=== PATIENT | male | born 1970 | race Two or more races ===

== ENCOUNTER 2020-05-09 14:40 | Emergency (ER) | payer MEDICAID, SELFPAY ==
--- NOTE | ~2020-05-09 | XR_ITS ---
EXAMINATION: CHEST 1 VIEW CLINICAL INFORMATION: Cough. COMPARISON: None. TECHNIQUE: An AP view of the chest is provided. FINDINGS: The cardiac silhouette is not enlarged. The mediastinal and hilar contours are unremarkable. There are neither pleural effusions nor pneumothoraces. There are no consolidations. The osseous structures are unremarkable. XR/XR chest 1V IMPRESSION: No evidence for acute disease.
[2020-05-09 19:34] VITALS: BP 117/78; PULSE 73; RESP 17; TEMP 36.8; O2SAT 95; BMI 31.4
--- NOTE | 2020-05-09 19:35 | ED.GENADULT ---
HPI - General Adult General Chief complaint: General Medical Stated complaint: COUGH Time Seen by Provider: 05/09/20 18:25 Source: patient Mode of arrival: ambulatory Limitations: no limitations History of Present Illness HPI narrative: 49 y/o male presenting with cough for the last few days. He lives with his sons who are worried he may have COVID and want him to get tested. He reports he is coughing frequently and bringing up white phlegm. He denies fever, chills, headache, myalgias, abdominal pain, N/V/D. He has no chest pain or shortness of breath. He is an active smoker but denies history of COPD or asthma. MD complaint: cough Onset (ago): day(s) (3) Location: chest Radiation: non-radiation Severity: moderate Relieving factors: none Exacerbating factors: none Associated symptoms: cough Treatments prior to arrival: none Related Data Previous Rx's Medication Instructions Recorded albuterol sulfate 1 inh INHALATION QID PRN #6.7 g 05/09/20 azithromycin [Zithromax Z-Dwayne] See Rx Instructions .ROUTE 05/09/20 .COMPLEX #6 tab benzonatate [Tessalon Perles] 100 mg PO BID PRN #14 cap 05/09/20 prednisone 40 mg PO DAILY #10 tab 05/09/20 Allergies Allergy/AdvReac Type Severity Reaction Status Date / Time No Known Allergies Allergy Unverified 12/10/19 15:03 Review of Systems Review of Systems: Constitutional: No Fever, No Chills ENT/Mouth: No sore throat, No Rhinorrhea Cardiovascular: No Chest Pain, No SOB, No Orthopnea, No Edema Respiratory: + Cough, + Sputum, No Wheezing, No dyspnea Gastrointestinal: No Nausea, No Vomiting, No Diarrhea, No abdominal Pain Genitourinary: No Dysuria, No Urinary Frequency, No Hematuria Musculoskeletal: No joint pain, No Myalgias Skin: No Skin Lesions, No rash Neuro: No Weakness, No Numbness, No Dizziness, No Headache Psych: + Anxiety/Panic, No Depression Heme/Lymph: No Bruising, No Lymphadenopathy PMFSH Past Medical History Attestation statement: The following information was validated with the patient. Social History Social History Alcohol intake: never Smoking Status: Current every day smoker Use of substances other than those prescribed or required for medical reasons: No Advance Directives: No Advance Directives Information Provided: No Physical Exam Vital Signs: Vital Signs: Last Vital Signs Temp 98.3 F 05/09/20 19:34 Pulse 73 05/09/20 19:34 Resp 17 05/09/20 19:34 BP 117/78 05/09/20 19:34 Pulse Ox 95 05/09/20 19:34 Body Mass Index 31.4 Appearance: Alert. Oriented X3. No acute distress. Eyes: normal external inspection ENT: Pharynx normal. Neck: Normal inspection. Neck supple. CVS: Normal heart rate and rhythm. Pulses normal. Respiratory: No respiratory distress. Inspiratory wheeze at right base otherwise clear throughout Abdomen: Soft and nontender. +BS x4 Extremities: No lower extremity edema. Neuro: Oriented X 3. Non-focal, steady gait. Course Course Course Narrative: 49 yo male presenting with productive cough and slight wheeze on exam. Will check CXR and Resp panel. He is non-toxic with normal VS. Reevaluation(s) Reevaluation #1: CXR and COVID are negative. Will treat for acute bronchitis. Patient has been counseled. He is stable for discharge. Medical Decision Making Lab Data Labs: Lab Results 05/09/20 Range/Units 19:24 Coronavirus (PCR) NEGATIVE (Negative) Influenza Type A (PCR) NEGATIVE (Negative) Influenza Type B (PCR) NEGATIVE (Negative) RSV RNA Qual (PCR) NEGATIVE (Negative) Critical Care Time Critical Care Time Critical Care Time: No Discharge Plan Discharge Clinical Impression: Acute bronchitis Qualifiers: Bronchitis organism: unspecified organism Qualified Code(s): J20.9 - Acute bronchitis, unspecified Patient Disposition: Home, Self-Care Instructions: Acute Bronchitis (ED) Additional Instructions: Your COVID test was negative today. Your chest x-ray did not show any pneumonia. Take the prescribed medications as directed for your lungs. Follow up with your doctor this week. Stop smoking cigarettes. Prescriptions: New azithromycin [Zithromax Z-Dwayne] 250 mg tablet See Rx Instructions .ROUTE .COMPLEX Qty: 6 RF: 0 prednisone 20 mg tablet 40 mg PO DAILY Qty: 10 RF: 0 albuterol sulfate 90 mcg/actuation HFA aerosol inhaler 1 inh inhalation QID PRN (Reason: shortness of breath or wheezing) Qty: 6.7 RF: 0 benzonatate [Tessalon Perles] 100 mg capsule 100 mg PO BID PRN (Reason: cough) Qty: 14 RF: 0
[2020-05-09 20:29] LABS: Influenza A PCR NEGATIVE (Negative); Influenza B PCR NEGATIVE (Negative); Resp Syncy Virus RNA Qual PCR NEGATIVE (Negative); SARS COV2 PCR INHOUSE NEGATIVE (Negative)
== END 2020-05-09 21:23 | disposition home or self-care (01) ==
PROVIDERS: Physician Assistant; Emergency Provider Internal Medicine
DX: J20.9 Acute bronchitis, unspecified (principal); Z20.822 Contact with and (suspected) exposure to COVID-19; F17.200 Nicotine dependence, unspecified, uncomplicated
CPT/HCPCS: 0241U; 36415; 71045; 99283; 99284

== ENCOUNTER 2022-10-27 22:38 | Emergency (ER) | payer MEDICAID, SELFPAY ==
[2022-10-27 22:47] VITALS: BP 144/92; PULSE 79; RESP 18; TEMP 36.6; O2SAT 96; BMI 34.3
== END 2022-10-28 06:41 | disposition left against medical advice (07) ==
PROVIDERS: Emergency Provider Emergency Medicine
DX: M25.431 Effusion, right wrist (principal); M25.432 Effusion, left wrist
CPT/HCPCS: 99281

== ENCOUNTER 2022-11-07 13:36 | Outpatient (REF) | payer MEDICAID, SELFPAY ==
--- NOTE | ~2022-11-07 | XR_ITS ---
EXAMINATION: XR HAND, LEFT CLINICAL INFORMATION: Left hand metacarpophalangeal pain and swelling. COMPARISON: Radiograph left hand 12/15/2018. TECHNIQUE: PA, lateral, and oblique views of the left hand. FINDINGS: No acute fractures or subluxation. Stable heterogeneous increased sclerosis of the lunate compared to 12/15/2018. No significant degenerative changes. No abnormal soft tissue calcifications. No erosive changes. No significant soft tissue abnormality. XR/XR hand LT min 3V IMPRESSION: 1. No acute fractures or subluxation. 2. Stable heterogeneous increased sclerosis of the lunate compared to 12/15/2018, which could be related with sequela of avascular necrosis. Further evaluation with an MRI could be obtained as clinically indicated.
[2022-11-07 14:51] LABS: Erythrocyte Sedimentation Rate 14 MM/HR (0-15)
[2022-11-07 15:31] LABS: Rheumatoid Factor 28.8 IU/mL (<15.0)
[2022-11-07 15:35] LABS: C Reactive Protein 1.43 mg/dL (< or = 0.50)
[2022-11-07 15:41] LABS: TSH reflex Free T4 1.48 uIU/mL (0.32-4.0)
== END 2022-11-07 13:37 | disposition home or self-care (01) ==
LOC: HO.LAB 13:36
PROVIDERS: Visit Provider Internal Medicine
DX: R29.898 Other symptoms and signs involving the musculoskeletal system (principal)
CPT/HCPCS: 36415; 73130; 84443; 85652; 86140; 86431

== ENCOUNTER 2023-02-04 15:11 | Outpatient (REF) | payer MEDICAID, SELFPAY ==
[2023-02-04 16:12] LABS: MANUAL DIFF FLAG NO
[2023-02-04 16:15] LABS: Basophils Percent Auto 0.3 % (0-2); Eosinophils Absolute Auto 0.2 X10*3/uL (0.0-0.4); Hematocrit 43.9 % (42.0-52.0); Hemoglobin 14.3 g/dl (14.0-18.0); Imm Gran Abs Auto 0.04 X10*3/uL (0.00-0.03); Imm Gran Pct Auto 0.6 % (0.0-0.4); Lymphocytes Absolute Auto 1.7 X10*3/uL (1.2-4.9); Lymphocytes Percent Auto 26.3 % (20-40); Mean Corpuscular HGB Conc 32.6 g/dl (31.0-36.0); Mean Corpuscular Hemoglobin 30.9 pg (27.0-33.0); Mean Corpuscular Volume 94.8 fL (80.0-98.0); Mean Platelet Volume 11.3 fL (9.4-12.4); Monocytes Absolute Auto 0.5 X10*3/uL (0.1-1.2); Neutrophils Absolute Auto 3.9 x10*3/uL (2.0-8.3); Neutrophils Percent Auto 61.8 % (45-73); Platelet Count 232 X10*3/uL (160-400); Red Blood Count 4.63 X10*6/uL (4.60-5.80); Red Cell Distribution Width 12.3 % (11.0-16.0); White Blood Count 6.3 X10*3/uL (4.8-10.8)
[2023-02-04 16:29] LABS: Estimated Average Glucose 105 mg/dL; Hemoglobin A1c % 5.3 % (<6.0)
[2023-02-04 16:38] LABS: Alanine Aminotransferase 9 U/L (0-40); Alkaline Phosphatase 109 U/L (39-117); Anion Gap 12 (12-20); Aspartate Amino Transferase 14 U/L (5-37); Bilirubin Direct 0.2 mg/dL (0.0-0.5); Bilirubin Total 0.5 mg/dL (0.0-1.0); Blood Urea Nitrogen 17 mg/dL (9-16); Calcium 9.1 mg/dL (8.4-10.2); Carbon Dioxide 29 mmol/L (22-29); Chloride 101 mmol/L (96-108); Cholesterol 238 mg/dL (<200); Estimated Glomerular Filt Rate > 60; Glucose Random 99 mg/dL (60-115); HDL Cholesterol 55 mg/dL (>40); LDL Cholesterol Calculated 153 mg/dL (<100); Potassium 3.8 mmol/L (3.3-5.1); Sodium 138 mmol/L (135-145); Total Protein 7.7 g/dL (6.5-8.0); Triglycerides 151 mg/dL (<150)
[2023-02-05 07:24] LABS: HIV AB/AG Nonreactive (Nonreactive); HIV Num 1 0.06 S/CO (0.00-0.99); ~HepC Num1 15.25 S/CO (0.00-0.79); ~Hepatitis C Antibody Reactive (Nonreactive)
[2023-02-06 18:04] LABS: HCV Log PCR <1.18 NOT DETECTED Log IU/mL (NOT DETECTED); HepC Viral Load <15 NOT DETECTED IU/mL (NOT DETECTED)
== END 2023-02-04 15:12 | disposition home or self-care (01) ==
LOC: HO.HHCL 15:11
PROVIDERS: Visit Provider Internal Medicine
DX: Z00.00 Encounter for general adult medical examination without abnormal findings (principal)
CPT/HCPCS: 36415; 80048; 80061; 80076; 83036; 85025; 86803; 87389; 87522

== ENCOUNTER 2023-02-06 14:29 | Outpatient (AMB) | payer MEDICAID, SELFPAY ==
[2023-02-06 14:46] VITALS: BMI 34.3
--- NOTE | 2023-02-06 14:46 | A.OFFVIS_ITS ---
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 Currently states his left is worse than his right. States he has swelling in hands for the last 3-4 weeks, joint pain, weakness and swelling limits his ROM at times. Denies injury. States he has left thumb surgery I&D about 2 years ago. Also states he has numbness and tingling in all his digits. No EMG done. 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 He complains of pain in multiple joints of his hands bilaterally. He also has weakness and swelling in his joints. He says his pain has been present and worsening for ~1 month now. He complains of numbness and tingling in his hands, primarily in his small fingers. 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 He told me he had a job now doing this, but he told the need a that he was unemployed.. [facility] Social History (Updated 02/06/23 @ 14:55 by Nusrat Rogel [facility]) Alcohol intake: never Current occupational status: unemployed Current occupation: rt hand Review of Systems Const All systems reviewed & are unremarkable except as noted in HPI and below Physical Exam Vital Signs: BMI result Body Mass Index 34.3 Const General: cooperative, healthy appearing and no acute distress Orientation/consciousness: patient oriented x3 HEENT Head: Yes normocephalic and Yes atraumatic Eyes EOM: EOMs intact bilaterally Resp Effort & Inspection: normal respiratory effort and able to speak in complete sentences Cardio Jugular venous distension: no JVD Skin General skin exam: turgor normal Rashes: no rashes Neuro General: patient oriented x3 Extrem Other: Evaluation of left Upper Extremity: The patient is alert, oriented, and in no acute distress Neuro: The patient thinks he has got some decreased sensation all of his fingers, more so the small finger. He does not appear to have any intrinsic or thenar wasting. Good finger cross. Vascular: Cap refill brisk ROM: He complains of pain across all left hand finger MCP joints and across the proximal phalanx of multiple fingers He can make a fist and extend all of his digits. No locking and catching and no A1 elizabeth tenderness. His wrist range of motion appears to be pretty much symmetrical. Wrist extension of perhaps 60 degrees and wrist flexion of perhaps 65-70 degrees bilaterally. When I asked him where he had pain, he demonstrated across the 2nd through 5th MCP joints and the proximal phalanxes. When I palpated his wrist, he had rather diffuse tenderness across the entire dorsal aspect of his wrist extending from the ulnocarpal joint across the dorsal radiocarpal joint to the far radial radiocarpal joint. No visible swelling or effusion. Skin: No lacerations or abrasions. General: No Ecchymosis. No Erythema or evidence of infection. Radiographs: 3 views of the left wrist, plus a scaphoid view, were taken and viewed by me today in clinic. They show some evidence of light cyst formation in the lunate. I do not see any fragmentation or lose of lunate height. This is an ulnar positive variance. 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 Left Kienbock's disease based on radiographs Sclerosis and cyst formation. No evidence of collapse, fracture or fragmentation 2. Bilateral hand pain more so over the left MCP joints No radiographic MCP joint abnormalities He denies any wrist pain at this time and primary complaints of bilateral hand pain across multiple MCP joints & multiple proximal phalanxes He was referred here for possible Keinbock's disease. I ordered an MRI to assess his wrist in more detail, with & without contrast He was fitted for a left wrist brace to wear with heavy activities and at night. This may also help his numbness. He should work on ROM exercises at home for his hand and wrist He will follow up when completed for review. This may be in March 2023. 3. Bilateral hand numbness All, but more so in the small fingers, L>R Symptoms intermittent, but daily, worse at night I educated him about carpal & cubital tunnel syndrome I ordered a NCS to assess for peripheral nerve compression vs cervical radiculopathy He will follow up when completed for review. Scribed for Deana Martinez MD by Fran Roberson, certified medical technician, on 02/06/23 at 3:00 PM, EST. 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
== END 2023-02-06 15:06 | disposition home or self-care (01) ==
PROVIDERS: Visit Provider Orthopaedic Surgery
DX: R20.0 Anesthesia of skin (principal); M93.1 Kienbock's disease of adults; M79.641 Pain in right hand; M79.642 Pain in left hand
CPT/HCPCS: 99204

== ENCOUNTER 2023-02-06 14:29 | Outpatient (REF) | payer MEDICAID, SELFPAY ==
--- NOTE | ~2023-02-06 | XR_ITS ---
EXAMINATION: XR WRIST, LEFT CLINICAL INFORMATION: Pain. COMPARISON: Radiographs dated 11/07/2022. TECHNIQUE: PA, lateral, and oblique views of the left wrist are submitted, together with a dedicated navicular view. FINDINGS: Bony alignment and mineralization are normal. There is an ulnar positive variance. There is stable heterogeneous sclerotic change of the lunate. The proximal and distal carpal rows are intact. There is no acute fracture or dislocation. There is no focal soft tissue swelling, gas or foreign body. XR/XR wrist LT w scaphoid IMPRESSION: 1. No acute fracture or dislocation is seen. 2. Previously described heterogeneous sclerosis of the lunate is unchanged, again raising the possibility of avascular necrosis.
== END 2023-02-06 14:30 | disposition home or self-care (01) ==
LOC: HO.HOSX 14:29
PROVIDERS: Visit Provider Orthopaedic Surgery
DX: M25.532 Pain in left wrist (principal); R20.0 Anesthesia of skin; M93.1 Kienbock's disease of adults; M79.641 Pain in right hand; M79.642 Pain in left hand
CPT/HCPCS: 73110; 99202

== ENCOUNTER 2023-03-06 10:29 | Outpatient (REF) | payer MEDICAID, SELFPAY ==
--- NOTE | 2023-03-06 10:31 | EMG_ITS ---
Please see scanned EMG / Nerve Conduction Report. MTDD
== END 2023-03-06 10:30 | disposition home or self-care (01) ==
LOC: HO.NEURO 10:29
PROVIDERS: Visit Provider Orthopaedic Surgery
DX: R20.0 Anesthesia of skin (principal); R20.2 Paresthesia of skin
CPT/HCPCS: 95885; 95913

== ENCOUNTER 2023-04-09 15:10 | Outpatient (REF) | payer MEDICAID, SELFPAY ==
--- NOTE | ~2023-04-09 | MR_ITS ---
EXAMINATION: MR WRIST WITHOUT AND WITH CONTRAST, LEFT CLINICAL INFORMATION: Left wrist pain, swelling, numbness. Kienbock's disease. COMPARISON: Left wrist radiographs dated 02/06/2023. TECHNIQUE: Multisequence MR imaging of the left wrist was obtained before and after the IV administration of 9 mL Gadavist contrast on a high-field strength scanner. FINDINGS: Evaluation limited secondary to patient motion. TRIANGULAR FIBROCARTILAGE: Significant attenuation through the radial aspect of the triangular fibrocartilage complex with a probable full-thickness tear measuring up to 0.3 cm in ML dimension. This is located approximately 0.3 cm from the distal radial insertion. The volar and dorsal radioulnar ligaments appear to remain intact. INTRINSIC LIGAMENTS: Grossly intact. TENDONS/MEDIAN NERVE: Slightly increased T2 signal within the intrasubstance of the extensor carpi ulnaris tendon with minimal edema in the tendon sheath consistent with mild tendinosis and tenosynovitis. No transverse tendon tear or tendon retraction. The remaining visualized flexor and extensor tendons are intact. Unremarkable median nerve. ARTICULAR CARTILAGE/BONE: Borderline ulnar positive variance. Full-thickness articular cartilage loss at the radiolunate articulation with distal radial and lunate subchondral cystic change. No sclerosis, cortical collapse, or evidence of avascular necrosis. No acute fracture or dislocation. No concerning lytic or blastic osseous lesion. No enhancing osseous lesion. JOINT FLUID/SOFT TISSUES: Synovial recess versus ganglion cyst along the dorsal aspect of the capitate measuring up to 1.0 cm with mild postcontrast enhancement. No soft tissue mass. MR/MR wrist LT wo/w con IMPRESSION: 1. Borderline ulnar positive variance with a probable full-thickness tear through the radial aspect of the triangular fibrocartilage complex measuring 0.3 cm in ML dimension. Volar and dorsal radioulnar ligaments appear to remain intact. 2. Full-thickness articular cartilage loss at the radiolunate articulation with subchondral cystic change. No sclerosis, cortical collapse, or evidence of avascular necrosis. 3. Mild extensor carpi ulnaris tendinosis and tenosynovitis without a measurable tendon tear. 4. Synovial recess versus ganglion cyst dorsal to the capitate measuring up to 1.0 cm.
[2023-04-09] MEDS: gadobutroL 10 ML VIAL IVPUSH (16:15)
== END 2023-04-09 15:11 | disposition home or self-care (01) ==
LOC: HO.MRI 15:10
PROVIDERS: Visit Provider Orthopaedic Surgery
DX: M93.1 Kienbock's disease of adults (principal)
CPT/HCPCS: 73223; A9585

== ENCOUNTER 2023-04-23 14:30 | Outpatient (AMB) | payer MEDICAID, SELFPAY ==
--- NOTE | 2023-04-23 14:31 | MHC.OFFVIS ---
Intake Vital Signs 04/23/23 14:36 Height 5 ft 4 in Weight 200 lb BMI 34.3 Intake Visit Reasons: OV- Avascular of lunate Lt wrist Intake Note: Fly 52 yr old male presents today for his follow up visit for his Kienbock's disease of lunate bone of left wrist. Patient here for his MRI & EMG review. Allergies No Known Allergies Allergy (Unverified 04/23/23 14:35) HPI OV- Avascular of lunate Lt wrist HPI Details Fly is a 52 year old right hand dominant man who returns for an MRI review of his left wrist. He is also here for a bilateral NCS review. His primary complaint today is of numbness, swelling, and stiffness in all his fingers, which he says is worse in the mornings. He says his numbness is worst in the small fingers. he says almost every night he experiences a burning pain in his hands. He says his left wrist brace has been helpful, and he would like one for his right side. He complains of pain in multiple joints of his hands bilaterally, along with weakness and swelling in his joints. He says his pain has been present and worsening for ~3 months now. He says he is currently unemployed. [facility] Social History Alcohol intake: never Current occupational status: unemployed Current occupation: rt hand Physical Exam Vital Signs: BMI result Body Mass Index 34.3 Extrem Other: Evaluation of left Upper Extremity: The patient is alert, oriented, and in no acute distress Neuro: The patient thinks he has got some decreased sensation all of his fingers, more so the small finger. He does not appear to have any intrinsic or thenar wasting. Good finger cross. Vascular: Cap refill brisk ROM: He complains of pain across all left hand finger MCP joints and across the proximal phalanx of multiple fingers He can make a fist and extend all of his digits. No locking and catching and no A1 elizabeth tenderness. His wrist range of motion appears to be pretty much symmetrical. Wrist extension of ~60 degrees and wrist flexion of ~65-70 degrees bilaterally. When I asked him where he had pain, he demonstrated across the 2nd through 5th MCP joints and the proximal phalanxes. When I palpated his wrist, he had rather diffuse tenderness across the entire dorsal aspect of his wrist extending from the ulnocarpal joint across the dorsal radiocarpal joint to the far radial radiocarpal joint. No visible swelling or effusion. Nerve Conduction Study: Normal bilateral NCS Dr. Nielson 03/06/23 Radiographs: 3 views of the left wrist, plus a scaphoid view, from 02/06/23 were reviewed by me today in clinic. They show some evidence of light cyst formation in the lunate. I do not see any fragmentation or lose of lunate height. This is an ulnar positive variance. Left Wrist MRI: FINDINGS: Evaluation limited secondary to patient motion. TRIANGULAR FIBROCARTILAGE: Significant attenuation through the radial aspect of the triangular fibrocartilage complex with a probable full-thickness tear measuring up to 0.3 cm in ML dimension. This is located approximately 0.3 cm from the distal radial insertion. The volar and dorsal radioulnar ligaments appear to remain intact. INTRINSIC LIGAMENTS: Grossly intact. TENDONS/MEDIAN NERVE: Slightly increased T2 signal within the intrasubstance of the extensor carpi ulnaris tendon with minimal edema in the tendon sheath consistent with mild tendinosis and tenosynovitis. No transverse tendon tear or tendon retraction. The remaining visualized flexor and extensor tendons are intact. Unremarkable median nerve. ARTICULAR CARTILAGE/BONE: Borderline ulnar positive variance. Full-thickness articular cartilage loss at the radiolunate articulation with distal radial and lunate subchondral cystic change. No sclerosis, cortical collapse, or evidence of avascular necrosis. No acute fracture or dislocation. No concerning lytic or blastic osseous lesion. No enhancing osseous lesion. JOINT FLUID/SOFT TISSUES: Synovial recess versus ganglion cyst along the dorsal aspect of the capitate measuring up to 1.0 cm with mild postcontrast enhancement. No soft tissue mass. IMPRESSION: 1. Borderline ulnar positive variance with a probable full-thickness tear through the radial aspect of the triangular fibrocartilage complex measuring 0.3 cm in ML dimension. Volar and dorsal radioulnar ligaments appear to remain intact. 2. Full-thickness articular cartilage loss at the radiolunate articulation with subchondral cystic change. No sclerosis, cortical collapse, or evidence of avascular necrosis. 3. Mild extensor carpi ulnaris tendinosis and tenosynovitis without a measurable tendon tear. 4. Synovial recess versus ganglion cyst dorsal to the capitate measuring up to 1.0 cm. 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 Bilateral hand pain More so over the left MCP and PIP joints No significant radiographic MCP or PIP joint abnormalities He denies any wrist pain at this time and primary complaints of bilateral hand pain across multiple MCP joints & multiple proximal phalanxes I referred him to our Rheumatology department to be assessed for possible rheumatological conditions that may be contributing to his swelling & pain. 2. Left wrist pain & swelling MRI from 04/11/23 was reviewed and showed no evidence of Kienbock's disease. No complaints today 3. Bilateral hand numbness All, but more so in the small fingers, L>R Symptoms intermittent, but daily, worse at night NCS from 03/06/23 was normal with no evidence of peripheral nerve compression He was given a right velcro wrist splint to wear at night, and he should continue to wear his left wrist brace at night. Please note that greater than 40 minutes was spent with this patient reviewing his documentation, reviewing his MRI with him, evaluating the patient and his studies, reviewing treatment options and documenting the visit. Scribed for Deana Martinez MD by Fran Roberson, medical administrative assistant, on 02/06/23 at 3:00 PM, EST. 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
[2023-04-23 14:36] VITALS: BMI 34.3
== END 2023-04-23 14:56 | disposition home or self-care (01) ==
PROVIDERS: Visit Provider Orthopaedic Surgery
DX: R20.0 Anesthesia of skin (principal); M79.641 Pain in right hand; M79.642 Pain in left hand; M19.032 Primary osteoarthritis, left wrist
CPT/HCPCS: 99215

== ENCOUNTER → 2023-04-23 14:30 | Outpatient (BNVA) | payer MEDICAID, SELFPAY | PROVIDERS: Visit Provider Orthopaedic Surgery | DX: R20.0 Anesthesia of skin (principal); M79.641 Pain in right hand; M79.642 Pain in left hand; M19.032 Primary osteoarthritis, left wrist | CPT/HCPCS: 99212 ==

== ENCOUNTER 2023-05-22 12:57 | Outpatient (AMB) | payer MEDICAID, SELFPAY ==
--- NOTE | 2023-05-22 13:00 | MHC.OFFVIS ---
Intake Vital Signs 05/22/23 13:01 Height 5 ft 4 in Weight 201 lb 15.095 oz BMI 34.7 BP 134/84 Blood Pressure Location Rt brachial Position Sitting Respiration 15 Pulse 86 Pulse Source Pulse Oximeter Temp 97.8 F Temp Source Skin Pulse Oximetry (%) 97 Oxygen Delivery Method Room Air Intake Visit Reasons: osteoarthritis [employer] Required: No Allergies No Known Allergies Allergy (Unverified 05/22/23 13:02) Medication List - Last Reconciled 05/22/23 by Swetha Seymour RN albuterol sulfate 90 mcg/actuation 2 puffs inhalation Q4-6H PRN albuterol sulfate 90 mcg/actuation 1 inh inhalation QID PRN benzonatate (Tessalon Perles) 100 mg PO BID PRN benzonatate 100 mg PO BID PRN naproxen 250 mg PO nicotine (polacrilex) 4 mg PO HPI HPI Comments History of Present Illness Details Ms. Victoria 52 year old male, on referral from hand surgeon, presents today for initial evaluation of bilateral hand pain and positive rheumatoid factor. The patient shares that he has been having bilateral hand pain and swelling for the better part of 4 months. He wears a splint at night to the left hand which helps with the numbness and tingling at night. However he says it does not help the pain and swelling that he gets during the day. He uses naproxen 200 mg p.r.n. which he says helps to dull the pain but does not take it away nor does it help with the swelling. A reviewed the hand surgeon notes of 04/23/2023 visit reveals: NCS from 03/06/23 was normal with no evidence of peripheral nerve compression He was given a right velcro wrist splint to wear at night, and he should continue to wear his left wrist brace at night. 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 Surgical History (Updated 05/22/23 @ 13:06 by Swetha Seymour RN) History of appendectomy Family History (Updated 05/22/23 @ 13:17 by Swetha Seymour RN) Mother Arthritis Father Arthritis Social History (Updated 05/22/23 @ 13:18 by Swetha Seymour RN) Household Members: Spouse Alcohol intake: never Patient Tobacco Use Status: Current everyday Tobacco user Substance Use Type: Opiates Current occupational status: unemployed Current occupation: rt hand Review of Systems Const All systems reviewed & are unremarkable except as noted in HPI and below Physical Exam Vital Signs: Last Vital Signs Temp 97.8 F 05/22/23 13:01 Pulse 86 05/22/23 13:01 Resp 15 05/22/23 13:01 BP 134/84 05/22/23 13:01 Pulse Ox 97 05/22/23 13:01 Oxygen Delivery Method Room Air 05/22/23 13:01 BMI result Body Mass Index 34.7 APPEARANCE: Patient in no acute distress EYES no redness, normal EARS:? External ear normal. NOSE/SINUS:? Airflow through both nares, no nasal discharge, no bleeding THROAT:? Oral mucosa moist, no ulcerations NECK:? No thyromegaly or masses, no adenopathy, trachea midline. HEART:? Regular rhythm, S1-S2 heard, no murmurs, rubs or gallops. LUNG:? Clear to percussion and auscultation EXTREMITIES:? No edema, no calf tenderness, normal peripheral pulses. NEURO:? Oriented and alert x3.? No focal weakness.? Reflexes symmetric.? Gait normal. SKIN:? There are no skin lesions evident. No objective signs of Raynaud's phenomenon. JOINT EXAM: Cervical Spine:.? Full range of motion without pain; no tenderness. Thoracic Spine:.? No scoliosis.? No tenderness on palpation. Lumbar Spine:.? Alignment normal.? Full range of motion without pain, no tenderness. Chest Wall:.? No tenderness, swelling, increased warmth or erythema. Hands:.?Tenderness acros bilateral MCP and PIP joints with synovitis to 2nd and 3rd PIPs, increased warmth but no erythema. (See below for additional PE from Hand surgery) he makes a fist but described increased stiffness and soreness. Wrists:.? Normal pain-free range of motion with tenderness and trace swelling, increased warmth but no erythema. Elbows:. Normal pain-free range of motion without tenderness, swelling, increased warmth or erythema. Shoulders:.?? Full range of motion without pain. No tenderness, weakness, swelling, increased warmth or erythema. Hips:.? Full range of motion without pain. Hip bursa:.? No tenderness. Knees:.?? Normal pain-free range of motion without tenderness, swelling, increased warmth or erythema.? There is no effusion or crepitation Ankles:.? Normal pain-free range of motion without tenderness, swelling, increased warmth or erythema. Feet:.? Normal pain-free range of motion without tenderness, swelling, increased warmth or erythema. Extrem Other: Hand Surgery visit: 04/23/2023: Evaluation of left Upper Extremity: The patient is alert, oriented, and in no acute distress Neuro: The patient thinks he has got some decreased sensation all of his fingers, more so the small finger. He does not appear to have any intrinsic or thenar wasting. Good finger cross. Vascular: Cap refill brisk ROM: He complains of pain across all left hand finger MCP joints and across the proximal phalanx of multiple fingers He can make a fist and extend all of his digits. No locking and catching and no A1 elizabeth tenderness. His wrist range of motion appears to be pretty much symmetrical. Wrist extension of ~60 degrees and wrist flexion of ~65-70 degrees bilaterally. When I asked him where he had pain, he demonstrated across the 2nd through 5th MCP joints and the proximal phalanxes. When I palpated his wrist, he had rather diffuse tenderness across the entire dorsal aspect of his wrist extending from the ulnocarpal joint across the dorsal radiocarpal joint to the far radial radiocarpal joint. No visible swelling or effusion. Nerve Conduction Study: Normal bilateral NCS Dr. Nielson 03/06/23 Radiographs: 3 views of the left wrist, plus a scaphoid view, from 02/06/23 were reviewed by me today in clinic. They show some evidence of light cyst formation in the lunate. I do not see any fragmentation or lose of lunate height. This is an ulnar positive variance. Left Wrist MRI: FINDINGS: Evaluation limited secondary to patient motion. TRIANGULAR FIBROCARTILAGE: Significant attenuation through the radial aspect of the triangular fibrocartilage complex with a probable full-thickness tear measuring up to 0.3 cm in ML dimension. This is located approximately 0.3 cm from the distal radial insertion. The volar and dorsal radioulnar ligaments appear to remain intact. INTRINSIC LIGAMENTS: Grossly intact. TENDONS/MEDIAN NERVE: Slightly increased T2 signal within the intrasubstance of the extensor carpi ulnaris tendon with minimal edema in the tendon sheath consistent with mild tendinosis and tenosynovitis. No transverse tendon tear or tendon retraction. The remaining visualized flexor and extensor tendons are intact. Unremarkable median nerve. ARTICULAR CARTILAGE/BONE: Borderline ulnar positive variance. Full-thickness articular cartilage loss at the radiolunate articulation with distal radial and lunate subchondral cystic change. No sclerosis, cortical collapse, or evidence of avascular necrosis. No acute fracture or dislocation. No concerning lytic or blastic osseous lesion. No enhancing osseous lesion. JOINT FLUID/SOFT TISSUES: Synovial recess versus ganglion cyst along the dorsal aspect of the capitate measuring up to 1.0 cm with mild postcontrast enhancement. No soft tissue mass. IMPRESSION: 1. Borderline ulnar positive variance with a probable full-thickness tear through the radial aspect of the triangular fibrocartilage complex measuring 0.3 cm in ML dimension. Volar and dorsal radioulnar ligaments appear to remain intact. 2. Full-thickness articular cartilage loss at the radiolunate articulation with subchondral cystic change. No sclerosis, cortical collapse, or evidence of avascular necrosis. 3. Mild extensor carpi ulnaris tendinosis and tenosynovitis without a measurable tendon tear. 4. Synovial recess versus ganglion cyst dorsal to the capitate measuring up to 1.0 cm. : Hal Kumar MD 04/11/23 Results Reviewed Results Reviewed: 2020 EXAMINATION: CHEST 1 VIEW CLINICAL INFORMATION: Cough. COMPARISON: None. TECHNIQUE: An AP view of the chest is provided. FINDINGS: The cardiac silhouette is not enlarged. The mediastinal and hilar contours are unremarkable. There are neither pleural effusions nor pneumothoraces. There are no consolidations. The osseous structures are unremarkable. XR/XR chest 1V IMPRESSION: No evidence for acute disease. Laboratory Tests 11/07/22 11/07/22 02/04/23 13:49 13:49 15:15 WBC 6.3 RBC 4.63 Hgb 14.3 Hct 43.9 ESR 14 Creatinine Estimated GFR AST ALT C-Reactive Protein 1.43 H TSH 1.48 Rheumatoid Factor 28.8 H Hepatitis C Ab (EIA) Hep C Viral Load Hep C Viral Load Log HIV 1&2 Ab/P24 Ag 4thGn 02/04/23 02/04/23 15:15 15:15 WBC RBC Hgb Hct ESR Creatinine 0.79 Estimated GFR > 60 AST 14 ALT 9 C-Reactive Protein TSH Rheumatoid Factor Hepatitis C Ab (EIA) Reactive H Hep C Viral Load <15 NOT DETECTED Hep C Viral Load Log <1.18 NOT DETECTED HIV 1&2 Ab/P24 Ag 4thGn Nonreactive Assessment & Plan Assessment & Plan (1) Seropositive rheumatoid arthritis: Code(s): M05.9 - Rheumatoid arthritis with rheumatoid factor, unspecified (2) Right hand pain: Code(s): M79.641 - Pain in right hand (3) Screening examination for infectious disease: Code(s): Z11.9 - Encounter for screening for infectious and parasitic diseases, unspecified (4) Left hand pain: Code(s): M79.642 - Pain in left hand (5) Bilateral hand swelling: Code(s): M79.89 - Other specified soft tissue disorders (6) Long-term use of immunosuppressant medication: Code(s): Z79.60 - [facility] (current) use of unspecified immunomodulators and immunosuppressants Plan # RA/hand pain and swelling: Mr. Victoria 52-year-old male here on referral from hand surgeon for evaluation of hand pain. After initial review of patient's history, physical exam, and available diagnostics, I believe the patient has rheumatoid arthritis in bilateral hands, he has synovitis and swelling and tenderness on PE. The patient also has positive rheumatoid factor from blood work back in October of 2022. I will consider to start the patient on methotrexate or leflunomide after additional workup with labs. He is a daily smoker so I will obtain a an update chest x-ray before starting a DMARD - last available chest x-ray was April 2020 and was normal. #long-term use: I discussed the length with patient the medications to be used and possible side effects and that we will monitor his progress and medication safety with labs. He is also to report any side effects that he had experiences while on the medication. The patient is also to hold the medications in the event of fevers, infections, surgeries, and nonhealing wound. I will also obtain labs for TB and hepatitis panel Follow-up in 2 weeks I spent 45 minutes reviewing history, evaluating patient, educating patient on rheumatoid arthritis, discussing treatment options and documenting Orders: Orders Anti DNA DS Antibody 05/22/23 M79.643 - Pain in unspecified hand, M79.673 - Pain in unspecified foot, M79.89 - Other specified soft tissue disorders, R76.8 - Other specified abnormal immunological findings in serum T Spot TB 05/22/23 M79.643 - Pain in unspecified hand, M79.673 - Pain in unspecified foot, R76.8 - Other specified abnormal immunological findings in serum, Z11.9 - Encounter for screening for infectious and parasitic diseases, unspecified Uric Acid 05/22/23 M79.643 - Pain in unspecified hand, M79.673 - Pain in unspecified foot, M79.89 - Other specified soft tissue disorders, R76.8 - Other specified abnormal immunological findings in serum Immunofixation Pnl, Serum 05/22/23 M79.643 - Pain in unspecified hand, M79.673 - Pain in unspecified foot, M79.89 - Other specified soft tissue disorders, R76.8 - Other specified abnormal immunological findings in serum Rheumatoid Factor 05/22/23 M79.643 - Pain in unspecified hand, M79.673 - Pain in unspecified foot, M79.89 - Other specified soft tissue disorders, R76.8 - Other specified abnormal immunological findings in serum XR hand RT min 3V 05/22/23 M05.9 - Rheumatoid arthritis with rheumatoid factor, unspecified, M79.641 - Pain in right hand, R76.8 - Other specified abnormal immunological findings in serum Hepatitis A,B,C Profile 05/22/23 Z11.9 - Encounter for screening for infectious and parasitic diseases, unspecified ANDREIA Reflex Titer and Pattern 05/22/23 M79.643 - Pain in unspecified hand, M79.673 - Pain in unspecified foot, M79.89 - Other specified soft tissue disorders, R76.8 - Other specified abnormal immunological findings in serum Anti Extractable Nuclear Ag 05/22/23 M79.643 - Pain in unspecified hand, M79.673 - Pain in unspecified foot, M79.89 - Other specified soft tissue disorders, R76.8 - Other specified abnormal immunological findings in serum Comprehensive Met. Panel 05/22/23 M79.643 - Pain in unspecified hand, M79.673 - Pain in unspecified foot, M79.89 - Other specified soft tissue disorders, R76.8 - Other specified abnormal immunological findings in serum Complete Blood Count Auto Diff 05/22/23 M79.643 - Pain in unspecified hand, M79.673 - Pain in unspecified foot, M79.89 - Other specified soft tissue disorders, R76.8 - Other specified abnormal immunological findings in serum C Reactive Protein 05/22/23 M79.643 - Pain in unspecified hand, M79.673 - Pain in unspecified foot, M79.89 - Other specified soft tissue disorders, R76.8 - Other specified abnormal immunological findings in serum Erythrocyte Sedimentation Rate 05/22/23 M79.643 - Pain in unspecified hand, M79.673 - Pain in unspecified foot, M79.89 - Other specified soft tissue disorders, R76.8 - Other specified abnormal immunological findings in serum Immunoglobulins,IgG IgA IgM 05/22/23 M79.643 - Pain in unspecified hand, M79.673 - Pain in unspecified foot, M79.89 - Other specified soft tissue disorders, R76.8 - Other specified abnormal immunological findings in serum Cyclic Citrullinated Peptide 05/22/23 M79.643 - Pain in unspecified hand, M79.673 - Pain in unspecified foot, M79.89 - Other specified soft tissue disorders, R76.8 - Other specified abnormal immunological findings in serum XR chest 2V 05/22/23 M05.9 - Rheumatoid arthritis with rheumatoid factor, unspecified Coding Level of Care Code New Pt Level 4 (95894) Diagnoses Seropositive rheumatoid arthritis M05.9 Right hand pain M79.641 Screening examination for infectious disease Z11.9 Left hand pain M79.642 Bilateral hand swelling M79.89 Long-term use of immunosuppressant medication Z79.60
[2023-05-22 13:01] VITALS: BP 134/84; PULSE 86; RESP 15; TEMP 36.6; O2SAT 97; BMI 34.7
== END 2023-05-22 14:05 | disposition home or self-care (01) ==
PROVIDERS: PCP Internal Medicine; Visit Provider Nurse Practitioner Family
DX: M05.79 Rheumatoid arthritis with rheumatoid factor of multiple sites without organ or systems involvement (principal); M79.641 Pain in right hand; M79.642 Pain in left hand; Z79.60 Long term (current) use of unspecified immunomodulators and immunosuppressants; Z11.9 Encounter for screening for infectious and parasitic diseases, unspecified; M79.89 Other specified soft tissue disorders
CPT/HCPCS: 99204

== ENCOUNTER → 2023-05-22 12:57 | Outpatient (BNVA) | payer MEDICAID, SELFPAY | PROVIDERS: PCP Internal Medicine; Visit Provider Nurse Practitioner Family | DX: M05.9 Rheumatoid arthritis with rheumatoid factor, unspecified (principal); M79.641 Pain in right hand; M79.642 Pain in left hand; M79.89 Other specified soft tissue disorders; Z11.9 Encounter for screening for infectious and parasitic diseases, unspecified; Z79.60 Long term (current) use of unspecified immunomodulators and immunosuppressants | CPT/HCPCS: 99212 ==

== ENCOUNTER 2023-05-28 15:27 | Outpatient (REF) | payer MEDICAID, SELFPAY ==
[2023-05-28 15:43] LABS: MANUAL DIFF FLAG NO
[2023-05-28 16:10] LABS: Basophils Absolute Auto 0.1 X10*3/uL (0.0-0.2); Basophils Percent Auto 0.6 % (0-2); Eosinophils Absolute Auto 0.2 X10*3/uL (0.0-0.4); Eosinophils Percent Auto 2.4 % (0-4); Hematocrit 44.3 % (42.0-52.0); Hemoglobin 14.9 g/dl (14.0-18.0); Imm Gran Abs Auto 0.04 X10*3/uL (0.00-0.03); Imm Gran Pct Auto 0.5 % (0.0-0.4); Lymphocytes Percent Auto 22.5 % (20-40); Mean Corpuscular HGB Conc 33.6 g/dl (31.0-36.0); Mean Corpuscular Hemoglobin 31.6 pg (27.0-33.0); Mean Corpuscular Volume 93.9 fL (80.0-98.0); Mean Platelet Volume 10.6 fL (9.4-12.4); Monocytes Absolute Auto 0.6 X10*3/uL (0.1-1.2); Monocytes Percent Auto 6.8 % (2-11); Neutrophils Absolute Auto 5.9 x10*3/uL (2.0-8.3); Neutrophils Percent Auto 67.2 % (45-73); Platelet Count 265 X10*3/uL (160-400); Red Blood Count 4.72 X10*6/uL (4.60-5.80); Red Cell Distribution Width 12.6 % (11.0-16.0); White Blood Count 8.8 X10*3/uL (4.8-10.8)
[2023-05-28 16:39] LABS: Alanine Aminotransferase 21 U/L (0-40); Albumin Level 4.2 g/dL (3.5-5.0); Alkaline Phosphatase 128 U/L (39-117); Anion Gap 10 (12-20); Aspartate Amino Transferase 19 U/L (5-37); Bilirubin Total 0.4 mg/dL (0.0-1.0); Blood Urea Nitrogen 19 mg/dL (9-16); C Reactive Protein 1.77 mg/dL (< or = 0.50); Carbon Dioxide 28 mmol/L (22-29); Chloride 105 mmol/L (96-108); Estimated Glomerular Filt Rate > 60; Glucose Random 98 mg/dL (60-115); Potassium 4.2 mmol/L (3.3-5.1); Sodium 139 mmol/L (135-145); Total Protein 8.1 g/dL (6.5-8.0); Uric Acid 6.6 mg/dL (3.4-7.0)
[2023-05-28 16:40] LABS: Rheumatoid Factor 21.9 IU/mL (<15.0)
[2023-05-28 16:58] LABS: Erythrocyte Sedimentation Rate 16 MM/HR (0-15)
[2023-05-29 09:32] LABS: HBS Num1 301.93 mIU/mL (0-7.99); HBc Num1 3.92 S/CO (0.00-0.79); HBsAGNum1 0.41 S/CO (0.00-0.99); Hepatitis A Antibody IgM 0.81 Index (0-0.79); Hepatitis B Surface Antigen Negative (Negative); ~Hepatitis B Surface Antibody REACTIVE (Nonreactive); ~Hepatitis C Antibody Reactive (Nonreactive)
[2023-05-29 11:15] LABS: ~Hepatitis A Antibody IgM GRAYZONE (Nonreactive)
[2023-05-29 17:54] LABS: Anti DNA DS Antibody <1 IU/mL; SM/Ribonucleoprotein Ab <1.0 NEG AI (<1.0 NEG); Smith Protein <1.0 NEG AI (<1.0 NEG)
[2023-05-30 11:12] LABS: HBc Num2 3.53 S/CO; HBc Num3 3.38 S/CO; Hepatitis B Core Antibody Reactive (Nonreactive)
[2023-05-30 13:34] LABS: Cyclic Citrullinated Peptide <16 UNITS
[2023-05-30 19:34] LABS: TS Negative Control Passed; TS Panel A 2; TS Panel B 0; TS Positive Control Passed; TSpotTB Negative (Negative)
[2023-05-31 09:38] LABS: IgA 284 mg/dL (47-310); IgG 1512 mg/dL (600-1640); IgM 171 mg/dL (50-300)
[2023-06-02 10:29] LABS: Anti Nuclear Antibody Pattern Nuclear, Speckled; Anti Nuclear Antibody Screen POSITIVE (NEGATIVE); Anti Nuclear Antibody Titer 1:40 titer
== END 2023-05-28 15:28 | disposition home or self-care (01) ==
LOC: HO.LAB 15:27
PROVIDERS: Visit Provider Nurse Practitioner Family
DX: Z11.9 Encounter for screening for infectious and parasitic diseases, unspecified (principal); R76.8 Other specified abnormal immunological findings in serum; M79.89 Other specified soft tissue disorders; M79.643 Pain in unspecified hand; M79.673 Pain in unspecified foot
CPT/HCPCS: 36415; 80053; 82784; 84550; 85025; 85652; 86038; 86039; 86140; 86200; 86225; 86235; 86334; 86431; 86481; 86704; 86706; 86709; 86803; 87340

== ENCOUNTER 2023-06-07 13:46 | Outpatient (REF) | payer MEDICAID, SELFPAY ==
--- NOTE | ~2023-06-07 | XR_ITS ---
EXAMINATION: XR CHEST XR HAND, RIGHT CLINICAL INFORMATION: Rheumatoid arthritis with rheumatoid factor. Abnormal immunological findings in serum. COMPARISON: None available. TECHNIQUE: PA, lateral, and oblique views of the right hand. FINDINGS: Right Hand: degenerative changes in the first carpometacarpal joint with joint space narrowing and hypertrophic change. Bone mineralization is normal. Multiple cystic lucencies notable within the lunate. Evaluation of the digits is limited on the lateral view due to overlapping finger positioning, with particularly limited visualization of the third, fourth and fifth digits. Minimal degenerative changes in scattered IP joints. Chest: There is no gross pneumothorax. Heart size is normal. Mild rightward curvature of the thoracic spine. A 9 mm possible pulmonary nodule versus prominent nipple shadow projects over the anterior aspect of the left sixth rib in the lower lateral left chest, not clearly appreciated on the prior exam. Recommend chest radiograph after placement of nipple markers. No pleural effusion. Mild degenerative changes in the thoracic spine. XR/XR hand RT min 3V IMPRESSION: 1. Mild degenerative changes first carpometacarpal joint. 2. Multiple cystic lucencies notable within the lunate. 3. A 9 mm possible pulmonary nodule versus prominent nipple shadow projects over the anterior aspect of the left sixth rib in the lower lateral left chest, not clearly appreciated on the prior exam. Recommend chest radiograph after placement of nipple markers. This study was presented today 06/12/2023 for interpretation. [facility] staff will provide results to referring provider at this time.
--- NOTE | ~2023-06-07 | XR_ITS ---
EXAMINATION: XR CHEST XR HAND, RIGHT CLINICAL INFORMATION: Rheumatoid arthritis with rheumatoid factor. Abnormal immunological findings in serum. COMPARISON: None available. TECHNIQUE: PA, lateral, and oblique views of the right hand. FINDINGS: Right Hand: degenerative changes in the first carpometacarpal joint with joint space narrowing and hypertrophic change. Bone mineralization is normal. Multiple cystic lucencies notable within the lunate. Evaluation of the digits is limited on the lateral view due to overlapping finger positioning, with particularly limited visualization of the third, fourth and fifth digits. Minimal degenerative changes in scattered IP joints. Chest: There is no gross pneumothorax. Heart size is normal. Mild rightward curvature of the thoracic spine. A 9 mm possible pulmonary nodule versus prominent nipple shadow projects over the anterior aspect of the left sixth rib in the lower lateral left chest, not clearly appreciated on the prior exam. Recommend chest radiograph after placement of nipple markers. No pleural effusion. Mild degenerative changes in the thoracic spine. XR/XR chest 2V IMPRESSION: 1. Mild degenerative changes first carpometacarpal joint. 2. Multiple cystic lucencies notable within the lunate. 3. A 9 mm possible pulmonary nodule versus prominent nipple shadow projects over the anterior aspect of the left sixth rib in the lower lateral left chest, not clearly appreciated on the prior exam. Recommend chest radiograph after placement of nipple markers. This study was presented today 06/12/2023 for interpretation. [facility] staff will provide results to referring provider at this time.
== END 2023-06-07 13:47 | disposition home or self-care (01) ==
LOC: HO.XRAY 13:46
PROVIDERS: PCP Internal Medicine; Visit Provider Nurse Practitioner Family
DX: R76.8 Other specified abnormal immunological findings in serum (principal); M79.641 Pain in right hand; M05.9 Rheumatoid arthritis with rheumatoid factor, unspecified
CPT/HCPCS: 71046; 73130

== ENCOUNTER 2023-06-12 13:39 | Outpatient (AMB) | payer MEDICAID, SELFPAY ==
--- NOTE | 2023-06-12 13:44 | A.OFFVIS_ITS ---
Intake Vital Signs 06/12/23 13:45 Height 5 ft 5 in Weight 202 lb 2.622 oz BMI 33.6 BP 132/86 Blood Pressure Location Rt brachial Position Sitting Respiration 16 Pulse 77 Pulse Source Pulse Oximeter Temp 97.5 F Temp Source Skin Pulse Oximetry (%) 97 Oxygen Delivery Method Room Air Intake Visit Reasons: +RA/Hand and wrist pain Blood Bank Specialist Required: No Accompanied by: Self / Same As Patient Allergies No Known Allergies Allergy (Unverified 06/12/23 13:47) Medication List - Last Reconciled 06/12/23 by Swetha Seymour RN albuterol sulfate 90 mcg/actuation 2 puffs inhalation Q4-6H PRN albuterol sulfate 90 mcg/actuation 1 inh inhalation QID PRN naproxen 250 mg PO nicotine (polacrilex) 4 mg PO HPI HPI Comments History of Present Illness Details Mr. Victoria returns to review his lab results and to initiate treatment for seropositive rheumatoid arthritis. His hand continues to be the same as outlined below with swelling and tenderness Initial history 05/22/2023 Mr. Victoria 52 year old male, on referral from hand surgeon, presents today for initial evaluation of bilateral hand pain and positive rheumatoid factor. The patient shares that he has been having bilateral hand pain and swelling for the better part of 4 months. He wears a splint at night to the left hand which helps with the numbness and tingling at night. However he says it does not help the pain and swelling that he gets during the day. He uses naproxen 200 mg p.r.n. which he says helps to dull the pain but does not take it away nor does it help with the swelling. A reviewed the hand surgeon notes of 04/23/2023 visit reveals: NCS from 03/06/23 was normal with no evidence of peripheral nerve compression He was given a right velcro wrist splint to wear at night, and he should continue to wear his left wrist brace at night. 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 Surgical History History of appendectomy Family History Mother Arthritis Father Arthritis Social History Household Members: Spouse Alcohol intake: never Patient Tobacco Use Status: Current everyday Tobacco user Substance Use Type: Opiates Current occupational status: unemployed Current occupation: rt hand Review of Systems Const All systems reviewed & are unremarkable except as noted in HPI and below Physical Exam Vital Signs: Last Vital Signs Temp 97.5 F 06/12/23 13:45 Pulse 77 06/12/23 13:45 Resp 16 06/12/23 13:45 BP 132/86 06/12/23 13:45 Pulse Ox 97 06/12/23 13:45 Oxygen Delivery Method Room Air 06/12/23 13:45 BMI result Body Mass Index 33.6 HEENT: Normocephalic and atraumatic. External auditory canals without erythema or edema bilaterally. Skin: Warm and dry. No rashes or lesions noted. Cardio: Regular rate and rhythm. No murmurs, gallops, or rubs. No lower extr emity edema. No JVD. Pulmonary: No respiratory distress. No accessory muscle usage. Scattered expiratory wheezing. Musculoskeletal: Normal range of motion in joints throughout the body. No deformity or other signs of injury. Swelling and tenderness continues to the hand IP joints Neuro: Alert and oriented x4. Cranial nerves 2-12 grossly intact. No focal deficits appreciated. Results Reviewed Results Reviewed: Laboratory Tests 02/04/23 05/28/23 05/28/23 15:15 15:39 15:39 WBC 8.8 RBC 4.72 Hgb 14.9 Hct 44.3 ESR 16 H Creatinine 0.86 Estimated GFR > 60 AST 19 ALT 21 Alkaline Phosphatase 128 H C-Reactive Protein 1.77 H Total Protein 8.1 H IgG Total 1512 IgA Total 284 IgM 171 Rheumatoid Factor 21.9 H ANDREIA Titer 1:40 H ANDREIA Pattern Nuclear, Speckled A Sm (Mustafa) Antibody <1.0 NEG SM/CLEANING LABORER IgG Antibody <1.0 NEG Double Strand DNA Ab <1 Hepatitis A IgM Ab GRAYZONE Hep Bs Antigen Negative Hep Bs Antibody REACTIVE Hep C Viral Load <15 NOT DETECTED Hep C Viral Load Log <1.18 NOT DETECTED TB Test (T-Spot) Com Negative Assessment & Plan Assessment & Plan (1) Seropositive rheumatoid arthritis: Code(s): M05.9 - Rheumatoid arthritis with rheumatoid factor, unspecified (2) Right hand pain: Code(s): M79.641 - Pain in right hand (3) Screening examination for infectious disease: Code(s): Z11.9 - Encounter for screening for infectious and parasitic diseases, unspecified (4) Left hand pain: Code(s): M79.642 - Pain in left hand (5) Bilateral hand swelling: Code(s): M79.89 - Other specified soft tissue disorders (6) Long-term use of immunosuppressant medication: Code(s): Z79.60 - terminal make up operator (current) use of unspecified immunomodulators and immunosuppressants Plan # RA/hand pain and swelling: I believe the patient has seropositive rheumatoid arthritis in bilateral hands, he has synovitis and swelling and tenderness on PE. The patient also has positive rheumatoid factor from blood work back in October of 2022 and on repeat for May 2023. I will start the patient on methotrexate 2.5 mg 6 pills q.week and folic acid 1 mg daily. I also prescribed some prednisone to bridge and help with his discomfort while methotrexate on board. Chest x-ray was within normal range. #long-term use: I discussed at the length with patient about methotrexate and that that we will monitor his progress and medication safety with labs. He is also to report any side effects that he had experiences while on the medication. Side effects of methotrexate include but are not limited to nausea vomiting, liver toxicity, fatigue, and cytopenias. The patient is also to hold the medications in the event of fevers, infections, surgeries, and nonhealing wound. His TB and hepatitis panel in the event we needs to use a bio DMARD. Follow-up in 8 weeks I spent 25 minutes reviewing history, evaluating patient, educating patient on rheumatoid arthritis, discussing treatment options and documenting Orders: Orders Erythrocyte Sedimentation Rate 06/12/23 M05.9 - Rheumatoid arthritis with rheumatoid factor, unspecified, Z79.60 - terminal make up operator (current) use of unspecified immunomodulators and immunosuppressants C Reactive Protein 06/12/23 M05.9 - Rheumatoid arthritis with rheumatoid factor, unspecified, Z79.60 - terminal make up operator (current) use of unspecified immunomodulators and immunosuppressants Complete Blood Count Auto Diff 06/12/23 M05.9 - Rheumatoid arthritis with rheumatoid factor, unspecified, Z79.60 - terminal make up operator (current) use of unspecified immunomodulators and immunosuppressants Comprehensive Met. Panel 06/12/23 M05.9 - Rheumatoid arthritis with rheumatoid factor, unspecified, Z79.60 - FDC (current) use of unspecified immunomodulators and immunosuppressants Medications: New methotrexate sodium 15 mg (6 x 2.5 mg) PO QWEEK 72 tabs 1RF M05.9 - Rheumatoid arthritis with rheumatoid factor, unspecified, M79.89 - Other specified soft tissue disorders prednisone 4 tablets per day x 7 days 3 tablets per day x 7 days 2 tablets per day x 7 days 1 tablets per day x 7 days 2.5 mg PO DAILY 70 tabs 0RF M05.9 - Rheumatoid arthritis with rheumatoid factor, unspecified, M79.89 - Other specified soft tissue disorders folic acid 1 mg PO DAILY 90 tabs 1RF M05.9 - Rheumatoid arthritis with rheumatoid factor, unspecified, Z79.60 - FDC (current) use of unspecified immunomodulators and immunosuppressants Coding Level of Care Code Est Pt Level 3 (65049) Diagnoses Seropositive rheumatoid arthritis M05.9 Right hand pain M79.641 Screening examination for infectious disease Z11.9 Left hand pain M79.642 Bilateral hand swelling M79.89 Long-term use of immunosuppressant medication Z79.60
[2023-06-12 13:45] VITALS: BP 132/86; PULSE 77; RESP 16; TEMP 36.4; O2SAT 97; BMI 33.6
== END 2023-06-12 15:12 | disposition home or self-care (01) ==
PROVIDERS: PCP Internal Medicine; Visit Provider Nurse Practitioner Family
DX: M05.79 Rheumatoid arthritis with rheumatoid factor of multiple sites without organ or systems involvement (principal); M79.641 Pain in right hand; Z11.9 Encounter for screening for infectious and parasitic diseases, unspecified; M79.642 Pain in left hand; M79.89 Other specified soft tissue disorders; Z79.60 Long term (current) use of unspecified immunomodulators and immunosuppressants
CPT/HCPCS: 99213

== ENCOUNTER → 2023-06-12 13:39 | Outpatient (BNVA) | payer MEDICAID, SELFPAY | PROVIDERS: PCP Internal Medicine; Visit Provider Nurse Practitioner Family | DX: M05.9 Rheumatoid arthritis with rheumatoid factor, unspecified (principal); M79.641 Pain in right hand; M79.642 Pain in left hand; M79.89 Other specified soft tissue disorders; Z11.9 Encounter for screening for infectious and parasitic diseases, unspecified; Z79.60 Long term (current) use of unspecified immunomodulators and immunosuppressants | CPT/HCPCS: 99212 ==

== ENCOUNTER 2023-09-10 14:13 | Outpatient (AMB) | payer MEDICAID, SELFPAY ==
[2023-09-10 14:20] VITALS: BP 108/60; PULSE 87; O2SAT 95; BMI 34.1
--- NOTE | 2023-09-10 14:20 | A.OFFVIS_ITS ---
Vital Signs 09/10/23 14:20 Height 5 ft 5 in Weight 205 lb 0.478 oz BMI 34.1 BP 108/60 Blood Pressure Location Rt brachial Position Sitting Pulse 87 Pulse Source Pulse Oximeter Pulse Oximetry (%) 95 Oxygen Delivery Method Room Air Intake Visit Reasons: RA Intake Note: Hand/finger pain and swelling Trailer Sections Assembler Required: No Accompanied by: Self / Same As Patient Allergies No Known Allergies Allergy (Unverified 09/10/23 14:22) HPI Comments Details: Mr. Victoria 53 yoM returns to review his lab results and to initiate treatment for seropositive rheumatoid arthritis. His hand continues to be the same as outlined below with swelling and tenderness 06/12/23 Mr. Victoria 53 yoM returns to review his lab results and to initiate treatment for seropositive rheumatoid arthritis. His hand continues to be the same as outlined below with swelling and tenderness Initial history 05/22/2023 Mr. Victoria 52 year old male, on referral from hand surgeon, presents today for initial evaluation of bilateral hand pain and positive rheumatoid factor. The patient shares that he has been having bilateral hand pain and swelling for the better part of 4 months. He wears a splint at night to the left hand which helps with the numbness and tingling at night. However he says it does not help the pain and swelling that he gets during the day. He uses naproxen 200 mg p.r.n. which he says helps to dull the pain but does not take it away nor does it help with the swelling. A reviewed the hand surgeon notes of 04/23/2023 visit reveals: NCS from 03/06/23 was normal with no evidence of peripheral nerve compression He was given a right velcro wrist splint to wear at night, and he should continue to wear his left wrist brace at night. 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 Surgical History History of appendectomy Family History Mother Arthritis Father Arthritis Social History Household Members: Spouse Alcohol intake: never Patient Tobacco Use Status: Current everyday Tobacco user Substance Use Type: Opiates Current occupational status: unemployed Current occupation: rt hand Review of Systems Const All systems reviewed & are unremarkable except as noted in HPI and below Physical Exam Vital Signs: Last Vital Signs Pulse 87 09/10/23 14:20 BP 108/60 09/10/23 14:20 Pulse Ox 95 09/10/23 14:20 Oxygen Delivery Method Room Air 09/10/23 14:20 BMI result Body Mass Index 34.1 HEENT: Normocephalic and atraumatic. External auditory canals without erythema or edema bilaterally. Skin: Warm and dry. No rashes or lesions noted. Cardio: Regular rate and rhythm. No murmurs, gallops, or rubs. No lower extremity edema. No JVD. Pulmonary: No respiratory distress. No accessory muscle usage. Scattered expiratory wheezing. Musculoskeletal: Normal range of motion in joints throughout the body. No deformity or other signs of injury. Swelling and tenderness continues to the hand IP joints Neuro: Alert and oriented x4. Cranial nerves 2-12 grossly intact. No focal deficits appreciated. Results Reviewed Results Reviewed: Laboratory Tests 05/28/23 15:39 WBC 8.8 RBC 4.72 Hgb 14.9 Hct 44.3 ESR 16 H C-Reactive Protein 1.77 H IgG Total 1512 IgA Total 284 IgM 171 Rheumatoid Factor 21.9 H Cycl Citrul Peptide IgG <16 Laboratory Tests 05/28/23 15:39 AST 19 ALT 21 Alkaline Phosphatase 128 H Assessment & Plan Assessment & Plan (1) Seropositive rheumatoid arthritis: Code(s): M05.9 - Rheumatoid arthritis with rheumatoid factor, unspecified Category: Medical (2) Right hand pain: Code(s): M79.641 - Pain in right hand Category: Medical (3) Left hand pain: Code(s): M79.642 - Pain in left hand Category: Medical (4) Bilateral hand swelling: Code(s): M79.89 - Other specified soft tissue disorders Category: Medical (5) Long-term use of immunosuppressant medication: Code(s): Z79.60 - FDC (current) use of unspecified immunomodulators and immunosuppressants Category: Medical Plan # SeroPos RA/hand pain and swelling: Tenosynovitis and swelling and tenderness on PE. Patient will continue methotrexate 2.5 mg 6 pills q.week and folic acid 1 mg daily. I also prescribed some prednisone to bridge [place] elder to help with his discomfort while methotrexate on board. Chest x-ray was within normal range. #Long-term use: I discussed at the length with patient about methotrexate and that that we will monitor his progress and medication safety with labs. He is also to report any side effects that he had experiences while on the medication. Side effects of methotrexate include but are not limited to nausea vomiting, liver toxicity, fatigue, and cytopenias. The patient is also to hold the medications in the event of fevers, infections, surgeries, and nonhealing wound. His TB and hepatitis panel in the event we needs to use a bio DMARD. Follow-up in 12 weeks I spent 20 minutes reviewing history, evaluating patient, educating patient on rheumatoid arthritis, discussing treatment options and documenting Orders: Orders Erythrocyte Sedimentation Rate 3 Months M05.9 - Rheumatoid arthritis with rheumatoid factor, unspecified, Z79.60 - business management manager (current) use of unspecified immunomodulators and immunosuppressants Comprehensive Met. Panel 3 Months M05.9 - Rheumatoid arthritis with rheumatoid factor, unspecified, Z79.60 - FDC (current) use of unspecified immunomodulators and immunosuppressants Complete Blood Count Auto Diff 3 Months M05.9 - Rheumatoid arthritis with rheumatoid factor, unspecified, Z79.60 - business management manager (current) use of unspecified immunomodulators and immunosuppressants C Reactive Protein 3 Months M05.9 - Rheumatoid arthritis with rheumatoid factor, unspecified, Z79.60 - FDC (current) use of unspecified immunomodulators and immunosuppressants Medications: Changed From prednisone 4 tablets per day x 7 days 3 tablets per day x 7 days 2 tablets per day x 7 days 1 tablets per day x 7 days 2.5 mg PO DAILY 70 tabs 0RF M05.9 - Rheumatoid arthritis with rheumatoid factor, unspecified, M79.89 - Other specified soft tissue disorders To prednisone 5 mg (2 x 2.5 mg) PO DAILY 70 tabs 0RF M05.9 - Rheumatoid arthritis with rheumatoid factor, unspecified, M79.89 - Other specified soft tissue disorders Refilled methotrexate sodium 15 mg (6 x 2.5 mg) PO QWEEK 72 tabs 1RF M05.9 - Rheumatoid arthritis with rheumatoid factor, unspecified, M79.89 - Other specified soft tissue disorders Coding Level of Care Code Est Pt Level 3 (33481) Complex EM visit Add On G2211 Diagnoses Seropositive rheumatoid arthritis M05.9 Right hand pain M79.641 Left hand pain M79.642 Bilateral hand swelling M79.89 Long-term use of immunosuppressant medication Z79.60
== END 2023-09-10 14:26 | disposition home or self-care (01) ==
LOC: HO.RHE 14:13
PROVIDERS: PCP Internal Medicine; Visit Provider Nurse Practitioner Family
DX: M05.79 Rheumatoid arthritis with rheumatoid factor of multiple sites without organ or systems involvement (principal); M79.641 Pain in right hand; M79.642 Pain in left hand; M79.89 Other specified soft tissue disorders; Z79.60 Long term (current) use of unspecified immunomodulators and immunosuppressants
CPT/HCPCS: 99213; G2211

== ENCOUNTER → 2023-09-10 14:13 | Outpatient (BNVA) | payer MEDICAID, SELFPAY | PROVIDERS: PCP Internal Medicine; Visit Provider Nurse Practitioner Family | DX: M05.9 Rheumatoid arthritis with rheumatoid factor, unspecified (principal); M79.641 Pain in right hand; M79.642 Pain in left hand; M79.89 Other specified soft tissue disorders; Z79.620 Long term (current) use of immunosuppressive biologic | CPT/HCPCS: 99212 ==

== ENCOUNTER 2023-12-11 15:27 | Outpatient (REF) | payer MEDICAID, SELFPAY ==
[2023-12-11 15:45] LABS: MANUAL DIFF FLAG NO
[2023-12-11 17:25] LABS: Basophils Absolute Auto 0.1 X10*3/uL (0.0-0.2); Basophils Percent Auto 0.9 % (0-2); Eosinophils Absolute Auto 0.2 X10*3/uL (0.0-0.4); Eosinophils Percent Auto 2.6 % (0-4); Hematocrit 41.5 % (42.0-52.0); Hemoglobin 14.1 g/dl (14.0-18.0); Imm Gran Abs Auto 0.04 X10*3/uL (0.00-0.03); Imm Gran Pct Auto 0.7 % (0.0-0.4); Lymphocytes Absolute Auto 1.8 X10*3/uL (1.2-4.9); Lymphocytes Percent Auto 29.8 % (20-40); Mean Corpuscular Volume 94.1 fL (80.0-98.0); Monocytes Absolute Auto 0.6 X10*3/uL (0.1-1.2); Monocytes Percent Auto 10.4 % (2-11); Neutrophils Absolute Auto 3.3 x10*3/uL (2.0-8.3); Neutrophils Percent Auto 55.6 % (45-73); Platelet Count 258 X10*3/uL (160-400); Red Blood Count 4.41 X10*6/uL (4.60-5.80); Red Cell Distribution Width 12.6 % (11.0-16.0); White Blood Count 5.9 X10*3/uL (4.8-10.8)
[2023-12-11 17:56] LABS: Alanine Aminotransferase 18 U/L (0-40); Albumin Level 3.9 g/dL (3.5-5.0); Alkaline Phosphatase 121 U/L (39-117); Anion Gap 11 (12-20); Aspartate Amino Transferase 15 U/L (5-37); Bilirubin Total 0.4 mg/dL (0.0-1.0); Blood Urea Nitrogen 14 mg/dL (9-16); C Reactive Protein 0.81 mg/dL (< or = 0.50); Calcium 9.1 mg/dL (8.4-10.2); Carbon Dioxide 27 mmol/L (22-29); Chloride 103 mmol/L (96-108); Estimated Glomerular Filt Rate > 60; Glucose Random 98 mg/dL (60-115); Potassium 3.9 mmol/L (3.3-5.1); Sodium 137 mmol/L (135-145); Total Protein 7.6 g/dL (6.5-8.0)
[2023-12-11 20:05] LABS: Erythrocyte Sedimentation Rate 21 MM/HR (0-15)
== END 2023-12-11 15:28 | disposition home or self-care (01) ==
LOC: HO.LAB 15:27
PROVIDERS: PCP Internal Medicine; Visit Provider Nurse Practitioner Family
DX: M05.9 Rheumatoid arthritis with rheumatoid factor, unspecified (principal); Z79.60 Long term (current) use of unspecified immunomodulators and immunosuppressants
CPT/HCPCS: 36415; 80053; 85025; 85652; 86140

== ENCOUNTER 2023-12-12 14:10 | Outpatient (AMB) | payer MEDICAID, SELFPAY ==
[2023-12-12 14:14] VITALS: BP 130/66; PULSE 83; O2SAT 95; BMI 34.4
--- NOTE | 2023-12-12 14:14 | A.OFFVIS_ITS ---
Vital Signs 12/12/23 14:14 Height 5 ft 5 in Weight 206 lb 12.697 oz BMI 34.4 BP 130/66 Blood Pressure Location Lt brachial Position Sitting Pulse 83 Pulse Source Pulse Oximeter Pulse Oximetry (%) 95 Oxygen Delivery Method Room Air Intake Visit Reasons: RA Allergies No Known Allergies Allergy (Unverified 09/10/23 14:22) Medication List - Last Reconciled 12/12/23 by Cristi Frias MD albuterol sulfate 90 mcg/actuation 2 puffs inhalation Q4-6H PRN albuterol sulfate 90 mcg/actuation 1 inh inhalation QID PRN folic acid 1 mg PO DAILY methotrexate sodium 15 mg (6 x 2.5 mg) PO QWEEK naproxen 250 mg PO nicotine (polacrilex) 4 mg PO prednisone 5 mg (2 x 2.5 mg) PO DAILY HPI Comments Details: This is a 53-year-old male with recently diagnosed seropositive RA who returns for follow-up. He was started on methotrexate and folic acid last visit by Radah Chinchilla. Patient states that he feels about the same overall. Continues to have multiple joint pain. States that he takes the medication sporadically. 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 Surgical History History of appendectomy Family History Mother Arthritis Father Arthritis Social History Household Members: Spouse Alcohol intake: never Patient Tobacco Use Status: Current everyday Tobacco user Substance Use Type: Opiates Current occupational status: unemployed Current occupation: rt hand Review of Systems Musc Reports arthralgias, Reports joint swelling and Reports stiffness Physical Exam Vital Signs: Last Vital Signs Pulse 83 12/12/23 14:14 BP 130/66 12/12/23 14:14 Pulse Ox 95 12/12/23 14:14 Oxygen Delivery Method Room Air 12/12/23 14:14 BMI result Body Mass Index 34.4 Const General: cooperative, healthy appearing and comfortable Nutritional Appearance: obese Orientation/consciousness: patient oriented x3 Limitations: no limitations HEENT Head: Yes normocephalic and Yes atraumatic Mouth: moist mucous membranes Resp Effort & Inspection: normal respiratory effort and able to speak in complete sentences Cardio Rate: regular rate Rhythm: regular rhythm Neuro General: patient oriented x3 Extrem Other: Right hand, mild puffiness of wrists, MCPs and fingers Mild tenderness at the right wrist and pain with flexion-extension Diffusely tender MCPs and PIP is right hand, no significant DIP tenderness Left wrist pain with flexion-extension Multiple tender MCPs and PIP is left hand No elbow pain with flexion-extension Normal range of motion of shoulders Assessment & Plan Assessment & Plan (1) Seropositive rheumatoid arthritis: Comment: +Rf (hx of Hep C_ -ve CCP dx 05/2023 MTX 05/2023 Code(s): M05.9 - Rheumatoid arthritis with rheumatoid factor, unspecified Category: Medical Plan: This is a 53-year-old male with newly diagnosed seropositive RA who presents for follow-up. He was started on methotrexate by Radha Long but patient states that he does not take it regularly. On exam he has multiple swollen joints. I think patient does not remember to take the medication weekly. Stop methotrexate left folic acid. I will prescribe leflunomide. Start leflunomide 10 mg daily for 1 month, check blood work, if unremarkable I will increase it to 20 mg daily Labs before next visit in 2 months (2) Long-term use of immunosuppressant medication: Code(s): Z79.60 - penit[facility]iary (current) use of unspecified immunomodulators and immunosuppressants Category: Medical Plan: Monitor safety labs for leflunomide (3) Hepatitis C antibody positive in blood: Code(s): R76.8 - Other specified abnormal immunological findings in serum Category: Medical Plan: Positive hepatitis-C antibody in the blood, with negative viral load. Patient states he received treatment for hepatitis-C in the past. Positive hepatitis-C antibody can cause a positive rheumatoid factor Positive hepatitis B core antibody. I will check hepatitis-B viral load and hepatitis delta Plan I spent 30 minutes reviewing patient's chart, evaluating patient, ordering diagnostic workup, counseling patient and documenting in the chart Orders: Orders Complete Blood Count Auto Diff 2 Months M05.9 - Rheumatoid arthritis with rheumatoid factor, unspecified, Z79.60 - penitentiary (current) use of unspecified immunomodulators and immunosuppressants C Reactive Protein 2 Months M05.9 - Rheumatoid arthritis with rheumatoid factor, unspecified, Z79.60 - terminal press operator (current) use of unspecified immunomodulators and immunosuppressants Erythrocyte Sedimentation Rate 2 Months M05.9 - Rheumatoid arthritis with rheumatoid factor, unspecified, Z79.60 - terminal press operator (current) use of unspecified immunomodulators and immunosuppressants Complete Blood Count Auto Diff 1 Month M05.9 - Rheumatoid arthritis with rheumatoid factor, unspecified, Z79.60 - penitentiary (current) use of unspecified immunomodulators and immunosuppressants Comprehensive Met. Panel 1 Month M05.9 - Rheumatoid arthritis with rheumatoid factor, unspecified, Z79.60 - penitentiary (current) use of unspecified immunomodulators and immunosuppressants C Reactive Protein 1 Month M05.9 - Rheumatoid arthritis with rheumatoid factor, unspecified, Z79.60 - terminal press operator (current) use of unspecified immunomodulators and immunosuppressants Erythrocyte Sedimentation Rate 1 Month M05.9 - Rheumatoid arthritis with rheumatoid factor, unspecified, Z79.60 - penitentiary (current) use of unspecified immunomodulators and immunosuppressants Hepatitis B Viral DNA Qn 1 Month B19.10 - Unspecified viral hepatitis B without hepatic coma Comprehensive Met. Panel 2 Months M05.9 - Rheumatoid arthritis with rheumatoid factor, unspecified, Z79.60 - penitentiary (current) use of unspecified immunomodulators and immunosuppressants Hepatitis Delta Antibody 1 Month B19.10 - Unspecified viral hepatitis B without hepatic coma Medications: New leflunomide 10 mg PO DAILY 30 tabs 0RF Discontinued methotrexate sodium Discontinued Reason: Doctor's Order 15 mg (6 x 2.5 mg) PO QWEEK 72 tabs 1RF M05.9 - Rheumatoid arthritis with rheumatoid factor, unspecified, M79.89 - Other specified soft tissue disorders folic acid Discontinued Reason: Doctor's Order 1 mg PO DAILY 90 tabs 1RF M05.9 - Rheumatoid arthritis with rheumatoid factor, unspecified, Z79.60 - penitentiary (current) use of unspecified immunomodulators and immunosuppressants Coding Level of Care Code Est Pt Level 4 (33499) Diagnoses Seropositive rheumatoid arthritis M05.9 Long-term use of immunosuppressant medication Z79.60 Hepatitis C antibody positive in blood R76.8
== END 2023-12-12 14:46 | disposition home or self-care (01) ==
PROVIDERS: PCP Internal Medicine; Referring Provider Internal Medicine; Visit Provider Student in an Organized Health Care Education/Training Program
DX: M05.79 Rheumatoid arthritis with rheumatoid factor of multiple sites without organ or systems involvement (principal); Z79.60 Long term (current) use of unspecified immunomodulators and immunosuppressants; R76.8 Other specified abnormal immunological findings in serum
CPT/HCPCS: 99214

== ENCOUNTER → 2023-12-12 14:10 | Outpatient (BNVA) | payer MEDICAID, SELFPAY | PROVIDERS: PCP Internal Medicine; Visit Provider Student in an Organized Health Care Education/Training Program | DX: M05.9 Rheumatoid arthritis with rheumatoid factor, unspecified (principal); R76.8 Other specified abnormal immunological findings in serum; Z79.60 Long term (current) use of unspecified immunomodulators and immunosuppressants | CPT/HCPCS: 99212 ==

== ENCOUNTER 2024-01-28 10:39 | Outpatient (REF) | payer MEDICAID, SELFPAY ==
[2024-01-28 11:11] LABS: MANUAL DIFF FLAG NO
[2024-01-28 12:02] LABS: Basophils Absolute Auto 0.1 X10*3/uL (0.0-0.2); Basophils Percent Auto 0.9 % (0-2); Eosinophils Absolute Auto 0.2 X10*3/uL (0.0-0.4); Eosinophils Percent Auto 2.3 % (0-4); Hematocrit 43.6 % (42.0-52.0); Hemoglobin 14.5 g/dl (14.0-18.0); Imm Gran Abs Auto 0.03 X10*3/uL (0.00-0.03); Imm Gran Pct Auto 0.4 % (0.0-0.4); Lymphocytes Absolute Auto 1.9 X10*3/uL (1.2-4.9); Lymphocytes Percent Auto 26.8 % (20-40); Mean Corpuscular HGB Conc 33.3 g/dl (31.0-36.0); Mean Corpuscular Hemoglobin 31.6 pg (27.0-33.0); Mean Platelet Volume 11.5 fL (9.4-12.4); Monocytes Absolute Auto 0.7 X10*3/uL (0.1-1.2); Neutrophils Absolute Auto 4.2 x10*3/uL (2.0-8.3); Neutrophils Percent Auto 59.6 % (45-73); Platelet Count 220 X10*3/uL (160-400); Red Blood Count 4.59 X10*6/uL (4.60-5.80); Red Cell Distribution Width 12.6 % (11.0-16.0)
[2024-01-28 12:38] LABS: Erythrocyte Sedimentation Rate 17 MM/HR (0-15)
[2024-01-28 12:40] LABS: Alanine Aminotransferase 22 U/L (0-40); Alkaline Phosphatase 115 U/L (39-117); Anion Gap 14 (12-20); Aspartate Amino Transferase 23 U/L (5-37); Bilirubin Total 0.4 mg/dL (0.0-1.0); Blood Urea Nitrogen 17 mg/dL (9-16); C Reactive Protein 1.75 mg/dL (< or = 0.50); Calcium 9.2 mg/dL (8.4-10.2); Carbon Dioxide 23 mmol/L (22-29); Chloride 106 mmol/L (96-108); Estimated Glomerular Filt Rate > 60; Glucose Random 110 mg/dL (60-115); Sodium 139 mmol/L (135-145); Total Protein 7.7 g/dL (6.5-8.0)
[2024-01-29 17:24] LABS: Hepatitis B Viral DNA Qn - cp NOT DETECTED Log IU/mL (NOT DETECTED); Hepatitis B Viral DNA Qn-IU/mL NOT DETECTED (NOT DETECTED)
[2024-02-02 00:39] LABS: Hepatitis Delta Antibody NEGATIVE
== END 2024-01-28 10:40 | disposition home or self-care (01) ==
LOC: HO.LAB 10:39
PROVIDERS: Visit Provider Student in an Organized Health Care Education/Training Program
DX: Z79.60 Long term (current) use of unspecified immunomodulators and immunosuppressants (principal); M05.9 Rheumatoid arthritis with rheumatoid factor, unspecified; B19.10 Unspecified viral hepatitis B without hepatic coma
CPT/HCPCS: 36415; 80053; 85025; 85652; 86140; 86692; 87517

== ENCOUNTER 2024-02-13 14:34 | Outpatient (AMB) | payer MEDICAID, SELFPAY ==
--- NOTE | 2024-02-13 14:35 | A.OFFVIS_ITS ---
Vital Signs 02/13/24 14:38 Height 5 ft 5 in Weight 204 lb 2.369 oz BMI 34.0 BP 130/64 Blood Pressure Location Rt brachial Position Sitting Respiration 18 Pulse 85 Pulse Source Pulse Oximeter Pulse Oximetry (%) 95 Oxygen Delivery Method Room Air Intake Visit Reasons: RA/lm Intake Note: Patient presents for RA. Allergies No Known Allergies Allergy (Verified 02/13/24 14:37) Medication List - Last Reconciled 02/13/24 by Cristi Frias MD albuterol sulfate 90 mcg/actuation 2 puffs inhalation Q4-6H PRN albuterol sulfate 90 mcg/actuation 1 inh inhalation QID PRN leflunomide 20 mg PO DAILY naproxen 250 mg PO nicotine (polacrilex) 4 mg PO HPI Comments Details: This is a 53-year-old male with recently diagnosed seropositive RA who returns for follow-up. Continues to have multiple joint pain and swelling especially of his hands and fingers. He did not follow the instructions. He took leflunomide 10 mg daily as prescribed for one-month then he ran out. Did Not do the requested safety blood work. 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 Surgical History History of appendectomy Family History Mother Arthritis Father Arthritis Social History Household Members: Spouse Alcohol intake: never Patient Tobacco Use Status: Current everyday Tobacco user Substance Use Type: Opiates Current occupational status: unemployed Current occupation: rt hand Review of Systems [facility] [employer] Reports arthralgias, Reports joint swelling and Reports stiffness Physical Exam Vital Signs: Last Vital Signs Pulse 85 02/13/24 14:38 Resp 18 02/13/24 14:38 BP 130/64 02/13/24 14:38 Pulse Ox 95 02/13/24 14:38 Oxygen Delivery Method Room Air 02/13/24 14:38 BMI result Body Mass Index 34.0 Const General: cooperative, healthy appearing and comfortable Nutritional Appearance: obese Orientation/consciousness: patient oriented x3 Limitations: no limitations HEENT Head: Yes normocephalic and Yes atraumatic Mouth: moist mucous membranes Resp Effort & Inspection: normal respiratory effort and able to speak in complete sentences Cardio Rate: regular rate Rhythm: regular rhythm Neuro General: patient oriented x3 Extrem Other: Right hand, mild puffiness of wrists, MCPs and fingers Mild tenderness at the right wrist and pain with flexion-extension Diffusely tender MCPs and PIP is right hand, no significant DIP tenderness Left wrist pain with flexion-extension Multiple tender MCPs and PIP is left hand No elbow pain with flexion-extension Normal range of motion of shoulders Assessment & Plan Assessment & Plan (1) Seropositive rheumatoid arthritis: Comment: +Rf (hx of Hep C_ -ve CCP dx 05/2023 MTX 05/2023 noncompliance DC 11/2023 Code(s): M05.9 - Rheumatoid arthritis with rheumatoid factor, unspecified Category: Medical Plan: This is a 53-year-old male with seropositive RA who presents for follow-up. Continues to have multiple swollen and tender joints. Patient did not follow the instructions as I have suggested. He took leflunomide 10 mg daily for one- month and did not do the safety blood work. He is not currently on any DMARDs. Advised patient to start taking leflunomide 20 mg daily for one-month, get safety blood work, if unremarkable I will refill his leflunomide Labs before next visit in 2 months (2) Long-term use of immunosuppressant medication: Code(s): Z79.60 - senior living (current) use of unspecified immunomodulators and immunosuppressants Category: Medical Plan: Monitor safety labs for leflunomide (3) Hepatitis C antibody positive in blood: Code(s): R76.8 - Other specified abnormal immunological findings in serum Category: Medical Plan: Positive hepatitis-C antibody in the blood, with negative viral load. Patient states he received treatment for hepatitis-C in the past. Positive hepatitis-C antibody can cause a positive rheumatoid factor Positive hepatitis B core antibody. With negative hepatitis-B viral load Plan I spent 20 minutes reviewing patient's chart, evaluating patient, ordering lyn gnostic workup, counseling patient and documenting in the chart Orders: Orders Complete Blood Count Auto Diff 2 Months M05.9 - Rheumatoid arthritis with rheumatoid factor, unspecified, Z79.60 - senior living (current) use of unspecified immunomodulators and immunosuppressants Comprehensive Met. Panel 2 Months M05.9 - Rheumatoid arthritis with rheumatoid factor, unspecified, Z79.60 - senior living (current) use of unspecified immunomodulators and immunosuppressants Complete Blood Count Auto Diff 1 Month M05.9 - Rheumatoid arthritis with rheumatoid factor, unspecified, Z79.60 - long term (current) use of unspecified immunomodulators and immunosuppressants C Reactive Protein 1 Month M05.9 - Rheumatoid arthritis with rheumatoid factor, unspecified, Z79.60 - senior living (current) use of unspecified immunomodulators and immunosuppressants C Reactive Protein 2 Months M05.9 - Rheumatoid arthritis with rheumatoid factor, unspecified, Z79.60 - long term (current) use of unspecified immuno modulators and immunosuppressants Erythrocyte Sedimentation Rate 2 Months M05.9 - Rheumatoid arthritis with rheumatoid factor, unspecified, Z79.60 - long term (current) use of unspecified immunomodulators and immunosuppressants Comprehensive Met. Panel 1 Month M05.9 - Rheumatoid arthritis with rheumatoid factor, unspecified, Z79.60 - senior living (current) use of unspecified immunomodulators and immunosuppressants Erythrocyte Sedimentation Rate 1 Month M05.9 - Rheumatoid arthritis with rheumatoid factor, unspecified, Z79.60 - senior living (current) use of unspecified immunomodulators and immunosuppressants Medications: Changed From leflunomide 10 mg PO DAILY 30 tabs 0RF To leflunomide 20 mg PO DAILY 30 tabs 0RF Discontinued prednisone Discontinued Reason: Doctor's Order 5 mg (2 x 2.5 mg) PO DAILY 70 tabs 0RF M05.9 - Rheumatoid arthritis with rheumatoid factor, unspecified, M79.89 - Other specified soft tissue disorders Coding Level of Care Code Est Pt Level 4 (29428) Diagnoses Seropositive rheumatoid arthritis M05.9 Long-term use of immunosuppressant medication Z79.60 Hepatitis C antibody positive in blood R76.8
[2024-02-13 14:38] VITALS: BP 130/64; PULSE 85; RESP 18; O2SAT 95; BMI 34.0
== END 2024-02-13 14:51 | disposition home or self-care (01) ==
PROVIDERS: PCP Internal Medicine; Visit Provider Student in an Organized Health Care Education/Training Program
DX: M05.79 Rheumatoid arthritis with rheumatoid factor of multiple sites without organ or systems involvement (principal); Z79.60 Long term (current) use of unspecified immunomodulators and immunosuppressants; R76.8 Other specified abnormal immunological findings in serum
CPT/HCPCS: 99214

== ENCOUNTER → 2024-02-13 14:34 | Outpatient (BNVA) | payer MEDICAID, SELFPAY | PROVIDERS: PCP Internal Medicine; Visit Provider Student in an Organized Health Care Education/Training Program | DX: M05.9 Rheumatoid arthritis with rheumatoid factor, unspecified (principal); R76.8 Other specified abnormal immunological findings in serum; Z79.60 Long term (current) use of unspecified immunomodulators and immunosuppressants | CPT/HCPCS: 99212 ==

== ENCOUNTER 2024-04-13 13:14 | Outpatient (AMB) | payer MEDICAID, SELFPAY ==
[2024-04-13 13:15] VITALS: BP 130/80; PULSE 86; O2SAT 96; BMI 35.9
--- NOTE | 2024-04-13 13:15 | MHC.OFFVIS ---
Vital Signs 04/13/24 13:15 Height 5 ft 5 in Weight 216 lb 0.848 oz BMI 35.9 BP 130/80 Blood Pressure Location Lt brachial Position Sitting Pulse 86 Pulse Source Pulse Oximeter Pulse Oximetry (%) 96 Oxygen Delivery Method Room Air Intake Visit Reasons: RA Intake Note: Patient last seen by Doctor Cristi Frias on 02/13/24. Presents today for RA follow up and test results. Allergies No Known Allergies Allergy (Verified 04/13/24 13:17) Medication List - Last Reconciled 04/13/24 by Minda Gill MD albuterol sulfate 90 mcg/actuation 2 puffs inhalation Q4-6H PRN albuterol sulfate 90 mcg/actuation 1 inh inhalation QID PRN leflunomide 20 mg PO DAILY naproxen 250 mg PO nicotine (polacrilex) 4 mg PO HPI Comments Details: Patient is a 53 y.o. male current every day smoker with hyperlipidemia, history of hepatitis C, and seropositive rheumatoid arthritis here today for follow up Interval History: Patient last seen 02/13/[address] Frias. At that time his rheumatoid arthritis was not controlled due to nonadherence to leflunomide. He was re prescribed leflunomide 10 mg and is here today for follow up. Today Patient reports mild improvement in his pain. Complains of left-sided pain and points to ribcage. States he takes the leflunomide most days of the week misses 1-2 days Rheumatologic History: Patient presented 05/22/2023 for evaluation of bilateral hand pain in the setting of a positive rheumatoid factor. Examined that time showed evidence of inflammatory disease and labs revealed positive RF, negative CCP and elevated ESR and CRP. Patient was started on a prednisone taper and given methotrexate. Methotrexate 05/2023 -11/2023. 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 Surgical History History of appendectomy Family History Mother Arthritis Father Arthritis Social History Household Members: Spouse Alcohol intake: never Patient Tobacco Use Status: Current everyday Tobacco user Substance Use Type: Opiates Current occupational status: unemployed Current occupation: rt hand Review of Systems Const Details: Review of Systems Constitutional: Denies fever, chills, weight loss ENT: Denies vision changes, eye pain or eye redness, dental caries, dry mouth GI: Denies nausea, vomiting, diarrhea, abdominal pain, change in BM Pulm: Denies SOB, CHAWLA, hemoptysis, wheezing Cards: Denies chest pain, palpitations Skin: Denies Raynaud's, rash, nail changes, photosensitivity, [employer]PL[employer] 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 Well appearing and in no apparent painful distress HEENT Conjunctiva and sclera clear. ?Pupils equal round and reactive to light. ?No lymphadenopathy. ? CHEST/RESPIRATORY SYSTEM Normal respiratory effort and able to speak in complete sentences. ?Clear to auscultation bilaterally. ?No crackles, rales, rhonchi, wheezes heard. CARDIAC SYSTEM Regular rate and rhythm. ?S1 and S2 heard no murmurs. ?Radial pulses intact bilaterally MSK Hands: ?Good legal adviser strength bilaterally. No deformities noted. ?TTP of the MCP joints bilaterally. Wrists: ?Full range of motion. TTP of bilateral wrists with fullness noted to the joint. Elbows: Full range of motion without pain. No tenderness, weakness, swelling, increased warmth or erythema. Shoulders: Full range of motion without pain. No tenderness, weakness, swelling, increased warmth or erythema. Hips: Full range of motion without pain. Hip bursa: No tenderness to palpation Knees: ?Full range of motion. ?No tenderness, swelling, increased warmth or erythema.?No effusion or crepitations Ankles: Full range of motion. ?No tenderness, swelling, increased warmth or erythema.? Feet: ?Positive squeeze test. ?Slight tenderness to palpation of the MTPs without swelling. Tender points:?No tenderness to palpation of the bilateral trapezius, supraspinatus, greater trochanters, anterior costochondral junctions, bilateral gluteal areas, bilateral suboccipital muscle insertions SKIN Skin intact without rashes. Results Reviewed Results Reviewed: Laboratory Tests 05/28/23 04/10/24 15:39 15:56 WBC 7.9 RBC 4.51 L Hgb 13.9 L Hct 41.8 L Plt Count 233 ESR 26 H Sodium 138 Potassium 3.8 Chloride 105 Carbon Dioxide 28 Anion Gap 9 L BUN 13 Estimated GFR > 60 Calcium 8.6 D Total Bilirubin 0.4 AST 21 ALT 16 Alkaline Phosphatase 113 C-Reactive Protein 1.52 H Total Protein 7.8 Rheumatoid Factor 21.9 H Cycl Citrul Peptide IgG <16 XR Hand 05/2023 FINDINGS: Right Hand: degenerative changes in the first carpometacarpal joint with joint space narrowing and hypertrophic change. Bone mineralization is normal. Multiple cystic lucencies notable within the lunate. Evaluation of the digits is limited on the lateral view due to overlapping finger positioning, with particularly limited visualization of the third, fourth and fifth digits. Minimal degenerative changes in scattered IP joints. MRI Left wrist 03/2023 FINDINGS: Evaluation limited secondary to patient motion. TRIANGULAR FIBROCARTILAGE: Significant attenuation through the radial aspect of the triangular fibrocartilage complex with a probable full-thickness tear measuring up to 0.3 cm in ML dimension. This is located approximately 0.3 cm from the distal radial insertion. The volar and dorsal radioulnar ligaments appear to remain intact. INTRINSIC LIGAMENTS: Grossly intact. TENDONS/MEDIAN NERVE: Slightly increased T2 signal within the intrasubstance of the extensor carpi ulnaris tendon with minimal edema in the tendon sheath consistent with mild tendinosis and tenosynovitis. No transverse tendon tear or tendon retraction. The remaining visualized flexor and extensor tendons are intact. Unremarkable median nerve. ARTICULAR CARTILAGE/BONE: Borderline ulnar positive variance. Full-thickness articular cartilage loss at the radiolunate articulation with distal radial and lunate subchondral cystic change. No sclerosis, cortical collapse, or evidence of avascular necrosis. No acute fracture or dislocation. No concerning lytic or blastic osseous lesion. No enhancing osseous lesion. JOINT FLUID/SOFT TISSUES: Synovial recess versus ganglion cyst along the dorsal aspect of the capitate measuring up to 1.0 cm with mild postcontrast enhancement. No soft tissue mass. IMPRESSION: 1. Borderline ulnar positive variance with a probable full-thickness tear through the radial aspect of the triangular fibrocartilage complex measuring 0.3 cm in ML dimension. Volar and dorsal radioulnar ligaments appear to remain intact. 2. Full-thickness articular cartilage loss at the radiolunate articulation with subchondral cystic change. No sclerosis, cortical collapse, or evidence of avascular necrosis. 3. Mild extensor carpi ulnaris tendinosis and tenosynovitis without a measurable tendon tear. 4. Synovial recess versus ganglion cyst dorsal to the capitate measuring up to 1.0 cm. Assessment & Plan Assessment & Plan (1) Seropositive rheumatoid arthritis: Comment: +Rf (hx of Hep C_ -ve CCP dx 05/2023 MTX 05/2023 noncompliance DC 11/2023 Leflunomide 12/2023 - MTx added back 03/2024 - Code(s): M05.9 - Rheumatoid arthritis with rheumatoid factor, unspecified Category: Medical Plan: Patient is a 53-year-old male with seropositive rheumatoid arthritis. Currently not in remission. Patient would prefer to try with pills prior to starting injectables. We will try methotrexate with leflunomide. Discussed with patient's the importance of consistency with medication in controlling his disease. If this does not work we will need to switch to biologic like Humira. Would not be able to add Plaquenil because of his current smoking which decreases the efficacy of Plaquenil. Plan - Leflunomide 20mg daily - Add back methotrexate 6 pills weekly - Folic Acid 1mg daily - RTC 3 months - Labs prior to visit: CBC, CMP, ESR, CRP (2) Long-term use of immunosuppressant medication: Code(s): Z79.60 - intermodal customer service (current) use of unspecified immunomodulators and immunosuppressants Category: Medical Plan: #Long-term leflunomide Discussed with patient the benefits and risks of leflunomide for managing the rheumatic condition Benefits include: - Reduced pain, maintenance of remission and reduction of flares Risks include: - GI upset especially diarrhea, skin rash, cytopenias, hepatotoxicity, weight loss, neuropathy Monitoring: ?CBC, BMP, LFTs, hepatitis B and C serologies (3) Methotrexate, longterm, current use: Code(s): Z79.631 - [facility] (current) use of antimetabolite agent Category: Medical Plan: #Long-term Current Use of Methotrexate Discussed with patient the benefits and risks of methotrexate for managing their rheumatic condition Benefits include reduced pain, reduced mortality, maintenance of remission and reduction of flares Risks include oral ulcers, photosensitivity, hepatotoxicity, hematologic toxicity, pneumonitis, flu-like symptoms (especially day after administration), nodulosis, lymphomas ? Limit alcohol and avoid Bactrim ? Monitoring: ?CBC, BMP, LFTs every 3-4 months and hepatitis serologies as needed Plan I spent 20 minutes reviewing the record and labs, taking a history, examining the patient, discussing the treatment plan and documenting in the medical record Orders: Orders Comprehensive Met. Panel 3 Months M05.9 - Rheumatoid arthritis with rheumatoid factor, unspecified, Z79.60 - intermodal customer service (current) use of unspecified immunomodulators and immunosuppressants C Reactive Protein 3 Months M05.9 - Rheumatoid arthritis with rheumatoid factor, unspecified, Z79.60 - intermodal customer service (current) use of unspecified immunomodulators and immunosuppressants Erythrocyte Sedimentation Rate 3 Months M05.9 - Rheumatoid arthritis with rheumatoid factor, unspecified, Z79.60 - [facility] (current) use of unspecified immunomodulators and immunosuppressants Complete Blood Count Auto Diff 3 Months M05.9 - Rheumatoid arthritis with rheumatoid factor, unspecified, Z79.60 - intermodal customer service (current) use of unspecified immunomodulators and immunosuppressants Medications: New methotrexate sodium 15 mg (6 x 2.5 mg) PO QWEEK 90 days 78 tabs 1RF M05.9 - Rheumatoid arthritis with rheumatoid factor, unspecified, Z79.60 - intermodal customer service (current) use of unspecified immunomodulators and immunosuppressants folic acid 1 mg PO DAILY 90 tabs 1RF M05.9 - Rheumatoid arthritis with rheumatoid factor, unspecified, Z79.60 - [facility] (current) use of unspecified immunomodulators and immunosuppressants Coding Level of Care Code Est Pt Level 3 (18338) Complex EM visit Add On G2211 Diagnoses Seropositive rheumatoid arthritis M05.9 Long-term use of immunosuppressant medication Z79.60 Methotrexate, terminal make up operator, current use Z79.631
== END 2024-04-13 13:35 | disposition home or self-care (01) ==
PROVIDERS: PCP Internal Medicine; Visit Provider Student in an Organized Health Care Education/Training Program
DX: M05.79 Rheumatoid arthritis with rheumatoid factor of multiple sites without organ or systems involvement (principal); Z79.60 Long term (current) use of unspecified immunomodulators and immunosuppressants; Z79.631 Long term (current) use of antimetabolite agent
CPT/HCPCS: 99213

== ENCOUNTER → 2024-04-13 13:14 | Outpatient (BNVA) | payer MEDICAID, SELFPAY | PROVIDERS: PCP Internal Medicine; Visit Provider Student in an Organized Health Care Education/Training Program | DX: M05.9 Rheumatoid arthritis with rheumatoid factor, unspecified (principal); Z79.60 Long term (current) use of unspecified immunomodulators and immunosuppressants; Z79.631 Long term (current) use of antimetabolite agent | CPT/HCPCS: 99212 ==

== ENCOUNTER 2024-07-20 13:29 | Outpatient (AMB) | payer MEDICAID, SELFPAY ==
[2024-07-20 13:32] VITALS: BP 118/66; PULSE 92; O2SAT 96; BMI 32.8
--- NOTE | 2024-07-20 13:32 | A.OFFVIS_ITS ---
Vital Signs 07/20/24 13:32 Height 5 ft 5 in Weight 197 lb 1.492 oz BMI 32.8 BP 118/66 Blood Pressure Location Lt brachial Position Sitting Pulse 92 Pulse Source Pulse Oximeter Pulse Oximetry (%) 96 Oxygen Delivery Method Room Air Intake Visit Reasons: RA Intake Note: Patient presents for follow up on RA and lab review. He was last seen in the office on 04/13/24. Patient states he was unabe to get his labs done. Allergies No Known Allergies Allergy (Verified 07/20/24 13:33) Medication List - Last Reconciled 07/20/24 by Minda Gill MD albuterol sulfate 90 mcg/actuation 2 puffs inhalation Q4-6H PRN albuterol sulfate 90 mcg/actuation 1 inh inhalation QID PRN folic acid 1 mg PO DAILY leflunomide 20 mg PO DAILY methotrexate sodium 15 mg (6 x 2.5 mg) PO QWEEK 90 days HPI Comments Details: Patient is a 53 y.o. male current every day smoker with hyperlipidemia, history of hepatitis C, and seropositive rheumatoid arthritis here today for follow up Interval History: Patient last seen 04/13/2024 with me. At that time he was following up for his rheumatoid arthritis. Not fully compliant with his leflunomide as he misses 2-3 days per week. Continued to have evidence of mild synovitis with tenderness to palpation of his MCPs, bilateral wrists and feet. Based on this methotrexate was added back to his regimen Today He reports that he feels the same Compliant with medications Rheumatologic History: Patient presented 05/22/2023 for evaluation of bilateral hand pain in the setting of a positive rheumatoid factor. Examined that time showed evidence of inflammatory disease and labs revealed positive RF, negative CCP and elevated ESR and CRP. Patient was started on a prednisone taper and given methotrexate. Methotrexate 05/2023 -11/2023. 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 Surgical History History of appendectomy Family History Mother Arthritis Father Arthritis Social History Household Members: Spouse Alcohol intake: never Patient Tobacco Use Status: Current everyday Tobacco user Substance Use Type: Opiates Current occupational status: unemployed Current occupation: rt hand Review of Systems Const Details: Review of Systems Constitutional: Denies fever, chills, weight loss ENT: Denies vision changes, eye pain or eye redness, dental caries, dry mouth GI: Denies nausea, vomiting, diarrhea, abdominal pain, change in BM Pulm: Denies SOB, CHAWLA, hemoptysis, wheezing Cards: Denies chest pain, palpitations Skin: Denies Raynaud's, rash, nail changes, photosensitivity, [employer] REPA[employer]ER: Denies headaches, weakness, paresthesias, recurrent falls MSK: as per HPI All other systems reviewed and are unremarkable except noted above Physical Exam Vital Signs: Last Vital Signs Pulse 92 07/20/24 13:32 BP 118/66 07/20/24 13:32 Pulse Ox 96 07/20/24 13:32 Oxygen Delivery Method Room Air 07/20/24 13:32 BMI result Body Mass Index 32.8 Vital signs reviewed Physical Examination CONSTITUITIONAL Patient alert and cooperative. Well appearing and in no apparent painful distress HEENT Conjunctiva and sclera clear. ?Pupils equal round and reactive to light. ?No lymphadenopathy. ? CHEST/RESPIRATORY SYSTEM Normal respiratory effort and able to speak in complete sentences. ?Clear to auscultation bilaterally. ?No crackles, rales, rhonchi, wheezes heard. CARDIAC SYSTEM Regular rate and rhythm. ?S1 and S2 heard no murmurs. ?Radial pulses intact bilaterally MSK Hands: ?Good travel writer strength bilaterally. No deformities noted. ?TTP of the MCP joints bilaterally. Wrists: ?Full range of motion. TTP of bilateral wrists with fullness noted to the joint. Elbows: Full range of motion without pain. No tenderness, weakness, swelling, increased warmth or erythema. Shoulders: Full range of motion without pain. No tenderness, weakness, swelling, increased warmth or erythema. Hips: Full range of motion without pain. Hip bursa: No tenderness to palpation Knees: ?Full range of motion. ?No tenderness, swelling, increased warmth or erythema.?No effusion or crepitations Ankles: Full range of motion. ?No tenderness, swelling, increased warmth or erythema.? Feet: ?Positive squeeze test. ?Slight tenderness to palpation of the MTPs without swelling. Tender points:?No tenderness to palpation of the bilateral trapezius, supraspinatus, greater trochanters, anterior costochondral junctions, bilateral gluteal areas, bilateral suboccipital muscle insertions SKIN Skin intact without rashes. Results Reviewed Results Reviewed: Laboratory Tests 01/28/24 04/10/24 11:10 15:56 WBC 7.9 RBC 4.51 L Hgb 13.9 L Hct 41.8 L Plt Count 233 ESR 26 H Sodium 138 Potassium 3.8 Chloride 105 Carbon Dioxide 28 BUN 13 Creatinine 0.76 AST 21 ALT 16 Alkaline Phosphatase 113 C-Reactive Protein 1.75 H 1.52 H Total Protein 7.8 Albumin 4.0 Immunology lab 05/28/23 15:39 Rheumatoid Factor 21.9 H Cycl Citrul Peptide IgG <16 ANDREIA Screen POSITIVE A ANDREIA Titer 1:40 H ANDREIA Pattern Nuclear, Speckled A Infectious serologies 02/04/23 05/28/23 01/28/24 15:15 15:39 11:10 Hepatitis A IgM Ab GRAYZONE Hep Bs Antigen Negative Hep Bs Antibody REACTIVE Hep B Core Total Ab Reactive Hep B DNA copies/mL NOT DETECTED Hep B DNA (IU/mL) NOT DETECTED Hepatitis C Ab (EIA) Reactive H Hep C Viral Load <15 NOT DETECTED Hep C Viral Load Log <1.18 NOT DETECTED TB Test (T-Spot) Com Negative Assessment & Plan Assessment & Plan (1) Seropositive rheumatoid arthritis: Comment: +Rf (hx of Hep C_ -ve CCP dx 05/2023 MTX 05/2023 noncompliance DC 11/2023 Leflunomide 12/2023 - MTx added back 03/2024 - Code(s): M05.9 - Rheumatoid arthritis with rheumatoid factor, unspecified Category: Medical Plan: #Seropositive RA Patient is a 53-year-old male with seropositive rheumatoid arthritis. Currently not in remission. He reports compliance with his medication however despite adding methotrexate at the last visit he continues to have swelling and tenderness to palpation of scattered MCPs and wrists. Discussed proceeding with injectable biologics and patient was amenable however he is not willing to inject himself weekly. We will put in a prior Auth for Simponi Aria infusion Plan - Leflunomide 20mg daily - Stop Mtx and Folic acid - Start Simponi aria infusions: 2mg/kg. 0, 4, and then every 8 weeks thereafter - RTC 4 months - Labs today: CBC, CMP, ESR, CRP, Hepatitis panel, T spot, HCV and HBV qu antitative (2) Long-term use of immunosuppressant medication: Code(s): Z79.60 - sales performance manager (current) use of unspecified immunomodulators and immu nosuppressants Category: Medical Plan: #Long-term leflunomide Discussed with patient the benefits and risks of leflunomide for managing the rheumatic condition Benefits include: - Reduced pain, maintenance of remission and reduction of flares Risks include: - GI upset especially diarrhea, skin rash, cytopenias, hepatotoxicity, weight loss, neuropathy Monitoring: ?CBC, BMP, LFTs, hepatitis B and C serologies (3) Encounter for monitoring golimumab therapy: Code(s): Z51.81 - Encounter for therapeutic drug level monitoring; Z79.620 - long-term (current) use of immunosuppressive biologic Plan: #Long-term Use of TNF Inhibitors: Simponi Aria infusions Discussed with the patient the benefits and risks of TNF inhibitors for the management of the rheumatic condition Benefits include reduce pain, maintenance of remission and reduction of flares as well as ?progression of the disease Risks include injection sites/infusion reactions, serious infections (such as bacterial infections, opportunistic infections), malignancy, delaminating syndromes, autoimmune phenomena, CHF exacerbations, palmar plantar psoriasis and cytopenias Recommended rotating injection sites, and holding medication during and for up to 1 week after resolution of a febrile illness or open skin wound Plan I spent 32 minutes reviewing the record and labs, taking a history, examining the patient, discussing the treatment plan and documenting in the medical record Orders: Orders Comprehensive Met. Panel Today M05.9 - Rheumatoid arthritis with rheumatoid factor, unspecified C Reactive Protein Today M05.9 - Rheumatoid arthritis with rheumatoid factor, unspecified Erythrocyte Sedimentation Rate Today M05.9 - Rheumatoid arthritis with rheumatoid factor, unspecified Hepatitis A,B,C Profile Today M05.9 - Rheumatoid arthritis with rheumatoid factor, unspecified T Spot TB Today M05.9 - Rheumatoid arthritis with rheumatoid factor, unspecified Hepatitis C Viral Load Today M05.9 - Rheumatoid arthritis with rheumatoid factor, unspecified Complete Blood Count Auto Diff Today M05.9 - Rheumatoid arthritis with rheumatoid factor, unspecified Hepatitis B Viral DNA Qn Today M05.9 - Rheumatoid arthritis with rheumatoid factor, unspecified Referrals Infusion Center Notification M05.9 - Rheumatoid arthritis with rheumatoid factor, unspecified Medications: Discontinued methotrexate sodium Discontinued Reason: Doctor's Order 15 mg (6 x 2.5 mg) PO QWEEK 90 days 78 tabs 1RF M05.9 - Rheumatoid arthritis with rheumatoid factor, unspecified, Z79.60 - sales performance manager (current) use of unspecified immunomodulators and immunosuppressants folic acid Discontinued Reason: Doctor's Order 1 mg PO DAILY 90 tabs 1RF M05.9 - Rheumatoid arthritis with rheumatoid factor, unspecified, Z79.60 - long-term (current) use of unspecified immunomodulators and immunosuppressants Coding Level of Care Code Est Pt Level 4 (93974) Complex EM visit Add On G2211 Diagnoses Seropositive rheumatoid arthritis M05.9 Long-term use of immunosuppressant medication Z79.60 Encounter for monitoring golimumab therapy Z51.81; Z79.620
--- OUTSIDE RECORDS SUMMARY | 2024-07-20 16:01 | XMS_ITS | Clinical Summary ---
Author Organization [employer] Address [address] [place] [address] Care Team Providers Care Entry Level Buyer Name Role Phone Zuleyma Main MD Primary Care Provide r Allergies No known active allergies Medications nicotine polacrilex (Nicorette) 4 MG gumIndications:Hero rosen Chew 1 each (4 mg) if needed for smoking cessation. 100 each 3 Active pseudoephedrine (Sudafed) 30 MG tablet Take 1 tablet (30 mg) by mouth every 4 (four) hours if needed for congestion for up to 10 days. 30 tablet 5 Active azithromycin (Zithromax) 250 MG tablet Take 2 tabs day and then 1 tab daily 6 tablet 5 Active albuterol (Ventolin HFA) 108 (90 Base) MCG/ACT inhalerIndicatio ns:Moderate persistent asthma, unspecified whether complicated Inhale 2 puffs every 6 (six) hours if needed for wheezing or shortness of breath. 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 02/01/2023 Health care maintenance 02/01/2023 Smoker 02/01/2023 Assessment & Plan (04/07/2024 4:21 PM EST): Counseling done Patient is not ready to quit Assessment & Plan (03/20/2023 3:43 PM EST): Patient reports he cut down significantly, he was congratulated and encourage to c/w good work Opioid dependence 01/31/2023 01/31/2023 Moderate persistent asthma 01/31/202301/31 Assessment & Plan (04/07/2024 4:20 PM EST): Patient educated to avid asthma triggers Assessment & Plan (03/20/2023 3:42 PM EST): Controlled c/w same interventions Migraine without aura, not refractory 01/31/2023 01/31/2023 Assessment & Plan (04/07/2024 4:20 PM EST): I advise to avoid migraine triggers like red wine, chocolate, cheese, strong perfumes Cough 01/31/2023 01/31/2023 Encounters Date Type Department Care Team Description 06/05/2024 Population Health Risk Score [facility] () Department [address] [place] [id number] Provider, Population Health Generic from Last 3 Months Immunizations Name Administration Dates Next Due Pneumococcal Conjugate PCV 20 04/07/2024 TD (adult), 2 Lf tetanus tox oid, preservative free, adsorbed 12/15/2018 Tdap 04/07/2024 Social History Tobacco Use Types Packs/Day Years Used Date Smoking Tobacco: Every Day Cigarettes Passive Smoke Exposure: Current Smokeless Tobacco: Current Tobacco Cessation:Ready to Q uit: Not Asked; Counseling Given: Not Answered Alcohol Use Standard Drinks/Week Comments Never 0 (1 standard drink = 0.6 oz pur e alcohol) Depression Answer Date Recorded Patient Health Questionnaire-9 Score 0 02/01/2023 Patient Health Questionnaire-9 Score 0 02/01/2023 Last PHQ-9: Questionnaire Data Not on file 1 04/03/2022 Housing Stability Answer Date Recorded What is your housing situation today? I have howard cortes 04/07/[address] you li ve. Do you have problems with any of the following? None of the above 04/07/2024 Food Insecurity Answer Date Recorded Within the past 12 months, y ou worried that your food would run out before you got money to buy more: Never True 04/07/2024 Within the past 12 months,th e food you bought just didn't last and you didn't have enough money to get more: Never True Transportation Answer Date Recorded In the past 12 months, has l ack of transportation kept you from medical appts, meetings, work or from getting things needed for daily living? No 04/07/2024 Utilities Answer Date Recorded In the past 12 months, has t he electric, gas, oil or water company threatened to shut off services in your home? No 04/07/2024 Depression Answer Date Recorded Patient Health Questionnaire-2 Score 0 04/07/2024 Internet Access Answer Date Recorded Internet Access Q1 No 04/07/2024 Internet Access Q2 I do not want or need it 03/25 Sex and Gender Information Value Date Recorded Sex Assigned at Male 01/22/2022 10:17 AM EDT Legal Sex Male 10:17 AM EDT Gender Identity Male 01/22/2022 10:17 AM EDT Sexual Orientation Straight 01/22/2022 10 :17 AM EDT Last Filed Vital Signs Vital Sign Reading Time Taken Comments Blood Pressure 125/83 04/07/2024 10:26 AM EST Pulse 86 04/07/2024 10:26 AM EST Temperature 35.3 ??C (95.6 ??F) 04/07/2024 10:[address] Respiratory Rate 18 04/07/2024 10:26 AM EST Oxygen Saturation 97% 03/27/2024 3:41 PM EST Inhaled Oxygen Concentration - - Weight 92.2 kg (203 lb 3.2 oz) 04/07/2024 10:26 AM EST Height 162.6 cm (5' 4 ) 04/07/2024 10:26 AM EST Body Mass Index 34.88 04/07/2024 10:26 AM EST Plan of Treatment Health Maintenance Due Date Last Done Comments CT Colonography 1969 Colonoscopy 1969 Colorectal Cancer Screening 1969 FIT DNA/Cologuard 1969 FIT 1969 FOBT 1969 Sigmoidoscopy 1969 Hepatitis B Vaccines (1 of 3 - 19+ 3-dose series) 1988 Zoster Vaccines (1 of 2) 06/26/2019 COVID-19 Vaccine (1 - 2023-2 5 season) 2023 Influenza Vaccine (#1) 2023 Alcohol/Substance Use Screening 04/07/2025 04/07/2024 Depression Screening 04/07/2025 04/07/2024, 02/01/2023 SDOH Screening 04/07/2025 04/07/2024 Tobacco Screening 04/07/2025 04/07/2024 Lipid Panel 02/05/2028 02/04/2023, 11/10/2020 DTaP/Tdap/Td Vaccines (2 - T d or Tdap) 04/07/2034 04/07/2024, 12/15/2018 RSV Patients and Patients Aged 60 years or older (1 - 1-dose 75+ series) 2044 HIV Screening Completed 02/04/2023, 11/10/2020 Hepatitis C Screening Completed 02/04/2023 , 02/04/2023, 11/10/2020 Pneumococcal Vaccine: 50+ Years Completed 04/07/2024 HIB Vaccines Aged Out No longer eligi ble based on patient's age to complete this topic HPV Vaccines Aged Out No longer eligi ble based on patient's age to complete this topic Hepatitis A Vaccines Aged Out No long er eligible based on patient's age to complete this topic IPV Vaccines Aged Out No longer eligi ble based on patient's age to complete this topic Meningococcal Vaccine Aged Out No mariely jacob eligible based on patient's age to complete this topic RSV under 20 months Aged Out No longe r eligible based on patient's age to complete this topic Rotavirus Vaccines Aged Out No longer eligible based on patient's age to complete this topic Procedures Procedure Name Priority Date/Time Associated Diagnosis Comments HEPATITIS C AB W/REFL TO HCV RNA, QN, PCR Routine 02/04/2023 3:15 PM EST Health care maintenance HIV 1/2 ANTIGEN/ANTIBODY, FOURTH GENERATION W/RFL Routine 02/04/2023 3:15 PM EST Health care maintenance LIPID PANEL, STANDARD Routine 02/04/2023 3:15 PM EST Health care maintenance from Last 3 Months or Most Recently Relevant to Health Maintenance Results * (ABNORMAL) Hepatitis C Antibody with Reflex to HCV, RNA, Quantitative, Real- Time PCR (02/04/2023 3:15 PM EST) Hepatitis C Antibody Reactive( A) Nonreactive [facility] Comment:Presumptive evidence of antibodies to HCV. Blood Venous blood specimen / Unknown 02/04/2023 3:15 PM EST 02/04/2023 4:09 PM EST Zuleyma Amaral MD LAB BLOOD ORDERABLES Final Result [facility] [address] [place] [address] [phone] * HIV-1/2 Antigen and Antibodies, Fourth Generation, with Reflexes (02/04/2023 3:15 PM EST) HIV AB/AG Nonreactive Nonreactive [facility] Comment:HIV-1 p24 Ag and/or HIV-1/HIV-2 Ab not detected.A test result that is nonreactive does not exclude thepossibility of exposure to or infection with HIV-1 and/orHIV-2. Nonreactive results in this assay for individualswith prior exposure to HIV-1 and/or HIV-2 may be due toantigen and antibody levels that are below the limit ofdetection of this assay.The aDealio HIV Ag/Ab Combo assay result andsupplemental assay results should be interpreted inconjunction with the patient's clinical presentation,history and other laboratory results. If the results areinconsistent with clinical evidence, additional testing issuggested to confirm the result. Blood Venous blood specimen / Unknown 02/04/2023 3:15 PM EST 02/04/2023 4:09 PM EST Zuleyma Amaral MD LAB BLOOD ORDERABLES Final Result Performing Organization Address [facility] Co de Phone Number [facility] [address] [place] [address] [phone] * (ABNORMAL) Lipid Panel, Standard (02/04/2023 3:15 PM EST) Triglycerides 151(H) <150 mg/dL [facility] Comment:Desirable Triglyceri de: less than 150 mg/dLBorderline High Triglyceride 150-199 mg/dLHigh Triglyceride: 200-499 mg/dLVery High Triglyceride: greater than or equal to 5OO mg/dL Cholesterol 238(H) <200 mg/dL [facility] Comment:Desirable Cholestero l: less than 200 mg/dLBorderline High Cholesterol: 200-239 mg/dLHigh Cholesterol: greater than 239 mg/dL LDL Cholesterol Calculated 153(H) <100 mg/dL [facility] Comment:Desirable LDL: less than 100 mg/dLNear Optimal/Above Optimal LDL: 110- 129 mg/dLBorderline High LDL: 130-159 mg/dLHigh LDL: 160-189 mg/dLVery High LDL: greater than or equal to 190 mg/dL HDL Cholesterol 55 >40 mg/dL [facility] Comment:Desirable HDL: great er than 40 mg/dL Note: This HDL assay may give artificially low results in patients with liver disease. Blood Venous blood specimen / Unknown 02/04/2023 3:15 PM EST 02/04/2023 4:09 PM EST us Zuleyma Amaral MD LAB BLOOD ORDERABLES Final Result Performing Organization Address City/[facility]/ZIP Co de Phone Number [facility] [address] [place] [phone] from Last 3 Months or Most Recently Relevant to Health Maintenance Insurance C3 Care Teams Entry Level Buyer Relationship Specialty Start Date End Date Zuleyma Main MD [address] [place] [address] PCP - General Family Medicine 12/04/17
== END 2024-07-20 13:55 | disposition home or self-care (01) ==
LOC: HO.RHE 13:29
PROVIDERS: PCP Internal Medicine; Visit Provider Student in an Organized Health Care Education/Training Program
DX: M05.79 Rheumatoid arthritis with rheumatoid factor of multiple sites without organ or systems involvement (principal); Z79.60 Long term (current) use of unspecified immunomodulators and immunosuppressants; Z51.81 Encounter for therapeutic drug level monitoring; Z79.620 Long term (current) use of immunosuppressive biologic
CPT/HCPCS: 99214

== ENCOUNTER → 2024-07-20 13:29 | Outpatient (BNVA) | payer MEDICAID, SELFPAY | PROVIDERS: PCP Internal Medicine; Visit Provider Student in an Organized Health Care Education/Training Program | DX: M05.9 Rheumatoid arthritis with rheumatoid factor, unspecified (principal); Z79.60 Long term (current) use of unspecified immunomodulators and immunosuppressants; Z51.81 Encounter for therapeutic drug level monitoring; Z79.620 Long term (current) use of immunosuppressive biologic | CPT/HCPCS: 99212 ==

== ENCOUNTER 2024-11-16 13:58 | Outpatient (REF) | payer MEDICAID, SELFPAY ==
[2024-11-16 14:19] LABS: MANUAL DIFF FLAG NO
[2024-11-16 14:37] LABS: Hematocrit 41.9 % (42.0-52.0); Hemoglobin 13.3 g/dl (14.0-18.0); Imm Gran Abs Auto 0.02 X10*3/uL (0.00-0.03); Imm Gran Pct Auto 0.3 % (0.0-0.4); Lymphocytes Absolute Auto 1.7 X10*3/uL (1.2-4.9); Mean Corpuscular HGB Conc 31.7 g/dl (31.0-36.0); Mean Corpuscular Hemoglobin 30.1 pg (27.0-33.0); Mean Corpuscular Volume 94.8 fL (80.0-98.0); NRBC Abs Auto 0.000 X10*3/uL (0.0-0.012); NRBC Pct Auto 0.0 /100WBC (0.0-0.2); Platelet Count 221 X10*3/uL (160-400); Red Blood Count 4.42 X10*6/uL (4.60-5.80); White Blood Count 5.9 X10*3/uL (4.8-10.8)
[2024-11-16 14:58] LABS: Alanine Aminotransferase 10 U/L (0-40); Albumin Level 4.0 g/dL (3.5-5.0); Alkaline Phosphatase 115 U/L (39-117); Anion Gap 11 (12-20); Aspartate Amino Transferase 18 U/L (5-37); Blood Urea Nitrogen 13 mg/dL (9-16); Calcium 8.7 mg/dL (8.4-10.2); Carbon Dioxide 27 mmol/L (22-29); Chloride 103 mmol/L (96-108); Estimated Glomerular Filt Rate > 60; Potassium 4.0 mmol/L (3.3-5.1); Sodium 137 mmol/L (135-145); Total Protein 7.2 g/dL (6.5-8.0)
--- OUTSIDE RECORDS SUMMARY | 2024-11-16 15:21 | XMS_ITS | Clinical Summary ---
Author Organization [employer] Address [address] [place] [address] Care Team Providers Care Surgery Teacher Name Role Phone Zuleyma Main MD Primary [...] Encounters Date Type Department Care Team Description 11/16/2024 Orders Only GENERIC EXTERNAL DATA DEPARTMENT Provider, Generic External Data 10/20/2024 Telephone [facility] MEDICINE [address] [place] [phone] Zuleyma Main MD No Show 10/20/2024 Telephone [facility] MEDICINE [address] [place] [phone] Zuleyma Main MD Chart Prep 10/13/2024 Patient Outreach [facility] MED & PEDS [address] [place], [place] [phone] Zuleyma Main MD Pre-visit Planning (SDOH was already completed.) from Last 3 Months Immunizations Immunization Administration Dates Next Due Pneumococcal Conjugate PCV [...] 86 04/07/2024 10:26 AM EST Temperature 35.3 C (95.6 F) 04/07/2024 10:26 AM EST Respiratory Rate 18 04/07/2024 10:26 AM EST [...] 1969 FIT 1969 FOBT 1969 Sigmoidoscopy 1969 Disability Screening 1969 Hepatitis B Vaccines (1 of 3 - 19+ 3-dose series) 1988 Zoster Vaccines (1 of 2) 06/26/2019 COVID-19 Vaccine ( - 2023-2 5 season) 2023 Influenza Vaccine (#1) 2024 Alcohol/Substance Use Screening 04/07/2025 04/07/2024 Depression Screening [...] patient's age to complete this topic Meningococcal B Vaccine Aged Out No l onger eligible based on patient's age to complete [...] Procedure Name Priority Date/Time Associated Diagnosis Comments C-REACTIVE PROTEIN Routine 11/16/2024 2: 16 PM EDT COMPREHENSIVE METABOLIC PANEL Routine 11/16/2024 2:16 PM EDT CBC WITH AUTO DIFFERENTIAL Routine 11/16/2024 2:16 PM EDT HEPATITIS C AB W/REFL TO HCV RNA, QN, PCR Routine 02/04/2023 3:15 PM EST Health care maintenance HIV 1/2 ANTIGEN/ANTIBODY, FOURTH GENERATION W/RFL Routine 02/04/2023 3:15 PM EST Health care maintenance LIPID PANEL, STANDARD Routine 02/04/2023 3:15 PM EST Health care maintenance from Last 3 Months or Most Recently Relevant to Health Maintenance Results * (ABNORMAL) CBC auto differential (11/16/2024 2:16 PM EDT) White Blood Count 5.9 4.8 - 10.8 X10*3/uL [facility] Red Blood Count 4.42(L) 4.60 - 5.80 X10*6/uL [facility] Hemoglobin 13.3(L) 14.0 - 18.0 g/dl [facility] Hematocrit 41.9(L) 42.0 - 52.0 % [facility] Mean Corpuscular Volume 94.8 80.0 - 98.0 fL [facility] Mean Corpuscular Hemoglobin 30.1 27.0 - 33.0 pg [facility] Mean Corpuscular HGB Conc 31.7 31.0 - 36.0 g/dl [facility] Red Cell Distribution Width 12.7 11.0 - 16.0 % [facility] Platelet Count 221 160 - 400 X10*3/uL [facility] Mean Platelet Volume 11.0 9.4 - 12.4 fL [facility] Neutrophils Percent Auto 59.1 45 - 73 % [facility] Imm Gran Pct Auto 0.3 0.0 - 0.4 % [facility] Lymphocytes Percent Auto 28.7 20 - 40 % [facility] Monocytes Percent Auto 8.4 2 - 11 % [facility] Eosinophils Percent Auto 2.5 0 - 4 % [facility] Basophils Percent Auto 1.0 0 - 2 % [facility] NRBC Pct Auto 0.0 0.0 - 0.2 /100WBC [facility] Neutrophils Absolute Auto 3.5 2.0 - 8.3 x10*3/uL [facility] Imm Gran Abs Auto 0.02 0.00 - 0.03 X10*3/uL [facility] Lymphocytes Absolute Auto 1.7 1.2 - 4.9 X10*3/uL [facility] Monocytes Absolute Auto 0.5 0.1 - 1.2 X10*3/uL [facility] Eosinophils Absolute Auto 0.2 0.0 - 0.4 X10*3/uL [facility] Basophils Absolute Auto 0.1 0.0 - 0.2 X10*3/uL [facility] NRBC Abs Auto 0.000 0.0 - 0.012 X10*3/uL [facility] 11/16/2024 2:16 PM EDT 11/16/2024 2:16 PM EDT us Generic External Data Provider LAB BLOOD ORDERAB LES Final Result [facility] [address] [place] [phone] * (ABNORMAL) C-reactive Protein (11/16/2024 2:16 PM EDT) C Reactive Protein 1.64(H) < or = 0.50 mg/dL [facility] 11/16/2024 2:16 PM EDT 11/16/2024 2:16 PM EDT us Generic External Data Provider LAB BLOOD ORDERAB LES Final Result [facility] [address] [place] [phone] * (ABNORMAL) Comprehensive Metabolic Panel (11/16/2024 2:16 PM EDT) Sodium 137 135 - 145 mmol/L [facility] Potassium 4.0 3.3 - 5.1 mmol/L [facility] Chloride 103 96 - 108 mmol/L [facility] Carbon Dioxide 27 22 - 29 mmol/L [facility] Anion Gap 11(L) 12 - 20 [facility] Urea Nitrogen (BUN) 13 9 - 16 mg/dL [facility] Creatinine, Serum 0.82 0.5 - 1.4 mg/dL [facility] Estimated Glomerular Filt Rate >60 [facility] Comment:Chronic Kidney Disea se: Estimated GFR < 60 mL/min/[id number] Kidney Disease: Estimated GFR < 15 mL/min/1.73m2 Glucose 115 60 - 115 mg/dL [facility] Calcium 8.7 8.4 - 10.2 mg/dL [facility] Bilirubin, Total 0.3 0.0 - 1.0 mg/dL [facility] Aspartate Amino Transferase 18 5 - 37 U/L [facility] Alanine Aminotransferase 10 0 - 40 U/L [facility] Total Protein 7.2 6.5 - 8.0 g/dL [facility] Albumin Level 4.0 3.5 - 5.0 g/dL [facility] Alkaline Phosphatase 115 39 - 117 U/L [facility] 11/16/2024 2:16 PM EDT 11/16/2024 2:16 PM EDT us Generic External Data Provider LAB BLOOD ORDERAB LES Final Result Performing Organization Address [facility]/ZIP Co de Phone Number [facility] [address] [place] [phone] * (ABNORMAL) Hepatitis C Antibody with Reflex to HCV, RNA, Quantitative, Real- Time PCR (02/04/2023 3:15 PM EST) Hepatitis C Antibody Reactive( A) Nonreactive [facility] Comment:Presumptive evidence of antibodies to HCV. Blood Venous blood specimen / Unknown 02/04/2023 3:15 PM EST 02/04/2023 4:09 PM EST us Zuleyma Amaral MD LAB BLOOD ORDERABLES Final Result Performing Organization Address [facility] Co de Phone Number [facility] [address] [place] [phone] * HIV-1/2 Antigen and Antibodies, Fourth Generation, with Reflexes (02/04/2023 3:15 PM EST) HIV AB/AG Nonreactive Nonreactive [facility] Comment:HIV-1 p24 Ag and/or HIV-1/HIV-2 Ab not detected.A test result that is nonreactive does not exclude thepossibility of exposure to or infection with HIV-1 and/orHIV-2. Nonreactive results in this assay for individualswith prior exposure to HIV-1 and/or HIV-2 may be due toantigen and antibody levels that are below the limit ofdetection of this assay.The [employer] HIV Ag/Ab Combo assay result andsupplemental assay results should be interpreted inconjunction with the patient's clinical presentation,history and other laboratory results. If the results areinconsistent with clinical evidence, additional testing issuggested to confirm the result. Blood Venous blood specimen / Unknown 02/04/2023 3:15 PM EST 02/04/2023 4:09 PM EST us Zuleyma Amaral MD LAB BLOOD ORDERABLES Final Result Performing Organization Address [facility] Co de Phone Number [facility] [address] [place] [phone] * (ABNORMAL) Lipid Panel, Standard (02/04/2023 3:15 PM EST) Triglycerides 151(H) <150 mg/dL [facility] Comment:Desirable Triglyceri de: less than 150 mg/dLBorderline High Triglyceride 150-199 mg/dLHigh Triglyceride: 200-499 mg/dLVery High Triglyceride: greater than or equal to 5OO mg/dL Cholesterol 238(H) <200 mg/dL [facility] Comment:Desirable Cholestero l: less than 200 mg/dLBorderline High Cholesterol: 200-239 mg/dLHigh Cholesterol: greater than 239 mg/dL LDL Cholesterol Calculated 153(H) <100 mg/dL [facility] Comment:Desirable LDL: less than 100 mg/dLNear Optimal/Above Optimal LDL: 110- 129 mg/dLBorderline High LDL: 130-159 mg/dLHigh LDL: 160-189 mg/dLVery High LDL: greater than or equal to 190 mg/dL HDL Cholesterol 55 >40 mg/dL [facility] Comment:Desirable HDL: great er than 40 mg/dL Note: This HDL assay may give artificially low results in patients with liver disease. Blood Venous blood specimen / Unknown 02/04/2023 3:15 PM EST 02/04/2023 4:09 PM EST us Zuleyma Amaral MD LAB BLOOD ORDERABLES Final Result Performing Organization Address City/[facility]/ZIP Co de Phone Number [facility] [address] [place] [phone] from Last 3 Months or Most Recently Relevant to Health Maintenance Insurance * Guarantor: [employer] Account Type Relation to Patient Date of Phone Billing Address Personal/Family Self [address] Care Teams Surgery Teacher Relationship Specialty Start Date End Date Zuleyma Main MD [address] [place] [phone] PCP - General Family Medicine 12/04/17
--- OUTSIDE RECORDS SUMMARY | 2024-11-16 15:21 | XMS_ITS | Encounter Summary ---
Author Organization [employer] Address [address] [place] [address] Care Team Providers Care Marketing Officer Name Role Phone Zuleyma Main MD Primary Care Provide r Encounter Details Date Type Department Care Team ([facility] st Contact Info) Description 11/16/2024 Orders Only GENERIC EXTERNAL DATA DEPARTMENT Provider, Generic External Data Social History Tobacco Use Types Packs/Day Years Used Date Smoking Tobacco: Every Day Cigarettes Passive Smoke Exposure: Current Smokeless Tobacco: Current Alcohol Use Standard Drinks/Week Comments Never 0 [...] Orientation Straight 01/22/2022 10 :17 AM EDT documented as of this encounter Plan of Treatment Not on file documented as of this encounter Procedures Procedure Name Priority Date/Time Associated Diagnosis Comments CBC WITH AUTO DIFFERENTIAL Routine 11/16/2024 2:16 PM EDT C-REACTIVE PROTEIN Routine 11/16/2024 2: 16 PM EDT COMPREHENSIVE METABOLIC PANEL Routine 11/16/2024 2:16 PM EDT documented in this encounter Results * (ABNORMAL) C-reactive Protein (11/16/2024 2:16 PM EDT) C Reactive Protein 1.64(H) < or = 0.50 mg/dL [facility] 11/16/2024 2:16 PM EDT 11/16/2024 2:16 PM EDT us Generic External Data Provider LAB BLOOD ORDERAB LES Final Result [facility] [address] [place] [phone] * (ABNORMAL) Comprehensive Metabolic Panel (11/16/2024 2:16 PM EDT) Sodium 137 135 - 145 mmol/L [facility] Potassium 4.0 3.3 - 5.1 mmol/L [facility] Chloride 103 96 - 108 mmol/L [facility] Carbon Dioxide 27 22 - 29 mmol/L [facility] Anion Gap 11(L) 12 - 20 [facility] Urea Nitrogen (BUN) 13 9 - 16 mg/dL [facility] Creatinine, Serum 0.82 0.5 - 1.4 mg/dL [facility] Estimated Glomerular Filt Rate >60 [facility] Comment:Chronic Kidney Disea se: Estimated GFR < 60 mL/min/[id number] Kidney Disease: Estimated GFR < 15 mL/min/1.73m2 Glucose 115 60 - 115 mg/dL [facility] Calcium 8.7 8.4 - 10.2 mg/dL [facility] Bilirubin, Total 0.3 0.0 - 1.0 mg/dL [facility] Aspartate Amino Transferase 18 5 - 37 U/L [facility] Alanine Aminotransferase 10 0 - 40 U/L [facility] Total Protein 7.2 6.5 - 8.0 g/dL [facility] Albumin Level 4.0 3.5 - 5.0 g/dL [facility] Alkaline Phosphatase 115 39 - 117 U/L [facility] 11/16/2024 2:16 PM EDT 11/16/2024 2:16 PM EDT us Generic External Data Provider LAB BLOOD ORDERAB LES Final Result [facility] [address] [place] [phone] * (ABNORMAL) CBC auto differential (11/16/2024 2:16 PM EDT) White Blood Count 5.9 4.8 - 10.8 X10*3/uL [facility] Red Blood Count 4.42(L) 4.60 - 5.80 X10*6/uL [facility] Hemoglobin 13.3(L) 14.0 - 18.0 g/dl [facility] Hematocrit 41.9(L) 42.0 - 52.0 % [facility] Mean Corpuscular Volume 94.8 80.0 - 98.0 fL [facility] Mean Corpuscular Hemoglobin 30.1 27.0 - 33.0 pg [facility] Mean Corpuscular HGB Conc 31.7 31.0 - 36.0 g/dl [facility] Red Cell Distribution Width 12.7 11.0 - 16.0 % [facility] Platelet Count 221 160 - 400 X10*3/uL [facility] Mean Platelet Volume 11.0 9.4 - 12.4 fL [facility] Neutrophils Percent Auto 59.1 45 - 73 % [facility] Imm Gran Pct Auto 0.3 0.0 - 0.4 % [facility] Lymphocytes Percent Auto 28.7 20 - 40 % [facility] Monocytes Percent Auto 8.4 2 - 11 % [facility] Eosinophils Percent Auto 2.5 0 - 4 % [facility] Basophils Percent Auto 1.0 0 - 2 % [facility] NRBC Pct Auto 0.0 0.0 - 0.2 /100WBC [facility] Neutrophils Absolute Auto 3.5 2.0 - 8.3 x10*3/uL [facility] Imm Gran Abs Auto 0.02 0.00 - 0.03 X10*3/uL [facility] Lymphocytes Absolute Auto 1.7 1.2 - 4.9 X10*3/uL [facility] Monocytes Absolute Auto 0.5 0.1 - 1.2 X10*3/uL [facility] Eosinophils Absolute Auto 0.2 0.0 - 0.4 X10*3/uL [facility] Basophils Absolute Auto 0.1 0.0 - 0.2 X10*3/uL [facility] NRBC Abs Auto 0.000 0.0 - 0.012 X10*3/uL [facility] 11/16/2024 2:16 PM EDT 11/16/2024 2:16 PM EDT us Generic External Data Provider LAB BLOOD ORDERAB LES Final Result [facility] [address] [place] [phone] documented in this encounter Visit Diagnoses Not on filedocumented in this encounter Additional Health Concerns Assessment Noted Time PHQ-9 Depression Total Score: 0 02/02/20 23 3:40 PM EST documented as of this encounter Care Teams Marketing Officer Relationship Specialty Start Date End Date Zuleyma Main MD [address] [place] [address] PCP - General Family Medicine 12/04/17 documented as of this encounter
[2024-11-17 04:24] LABS: HBS Num1 258.31 mIU/mL (0-7.99); HBc Num1 3.58 S/CO (0.00-0.79); HBsAGNum1 0.43 S/CO (0.00-0.99); Hepatitis A Antibody IgM 0.40 Index (0-0.79); Hepatitis B Surface Antigen Negative (Negative); ~HepC Num1 14.83 S/CO (0.00-0.79); ~Hepatitis A Antibody IgM Nonreactive (Nonreactive); ~Hepatitis B Surface Antibody REACTIVE (Nonreactive); ~Hepatitis C Antibody Reactive (Nonreactive)
[2024-11-17 05:04] LABS: HBc Num2 3.58 S/CO; HBc Num3 3.66 S/CO
[2024-11-17 15:28] LABS: HCV Log PCR <1.18 NOT DETECTED Log IU/mL (NOT DETECTED); HepC Viral Load <15 NOT DETECTED IU/mL (NOT DETECTED)
[2024-11-18 13:43] LABS: Hepatitis B Viral DNA Qn - cp NOT DETECTED Log IU/mL (NOT DETECTED); Hepatitis B Viral DNA Qn-IU/mL NOT DETECTED (NOT DETECTED)
[2024-11-19 12:04] LABS: TS Negative Control Passed; TS Panel A 0; TS Panel B 2; TS Positive Control Passed; TSpotTB Negative (Negative)
== END 2024-11-16 13:59 | disposition home or self-care (01) ==
LOC: HO.LAB 13:58
PROVIDERS: PCP Internal Medicine; Visit Provider Student in an Organized Health Care Education/Training Program
DX: M05.9 Rheumatoid arthritis with rheumatoid factor, unspecified (principal)
CPT/HCPCS: 36415; 80053; 85025; 85652; 86140; 86481; 86704; 86706; 86709; 86803; 87340; 87517; 87522

== ENCOUNTER 2024-12-16 13:52 | Outpatient (AMB) | payer MEDICAID, SELFPAY ==
--- NOTE | 2024-12-16 13:56 | A.OFFVIS_ITS ---
Vital Signs 12/16/24 14:01 Height 5 ft 4 in Weight 189 lb 6.033 oz BMI 32.5 BP 115/74 Blood Pressure Location Lt brachial Position Sitting Pulse 87 Pulse Source Pulse Oximeter Pulse Oximetry (%) 98 Oxygen Delivery Method Room Air Intake Visit Reasons: RA Intake Note: Patient presents for RA follow up. Allergies No Known Allergies Allergy (Verified 12/16/24 14:01) HPI Comments Details: Patient is a 54 y.o. male current every day smoker with hyperlipidemia, history of hepatitis C, and seropositive rheumatoid arthritis here today for follow up Interval History: Patient last seen 07/20/2024 with me. - On Leflunomide 20mg, methotrexate 15mg and folic acid 1mg - He reports that he feels the same - Compliant with medications - Started simponi infusions - stop methotrexate and folic acid Today - On Simponi 2mg/kg every 8 weeks, Leflunomide 20mg - Not taking leflunomide - Has not noticed much of a difference since starting the infusion, thinks that the swelling is about the same Rheumatologic History: Patient presented 05/22/2023 for evaluation of bilateral hand pain in the setting of a positive rheumatoid factor. Examined that time showed evidence of inflammatory disease and labs revealed positive RF, negative CCP and elevated ESR and CRP. Patient was started on a prednisone taper and given methotrexate. Methotrexate 05/2023 -11/2023. 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 Surgical History History of appendectomy Family History Mother Arthritis Father Arthritis Social History Household Members: Spouse Alcohol intake: never Patient Tobacco Use Status: Current everyday Tobacco user Substance Use Type: Opiates Current occupational status: unemployed Current occupation: rt hand Review of Systems Const Details: Review of Systems Constitutional: Denies fever, chills, weight loss ENT: Denies vision changes, eye pain or eye redness, dental caries, dry mouth GI: Denies nausea, vomiting, diarrhea, abdominal pain, change in BM Pulm: Denies SOB, CHAWLA, hemoptysis, wheezing Cards: Denies chest pain, palpitations Skin: Denies Raynaud's, rash, nail changes, photosensitivity, BREAKDOWN MAN: Denies headaches, weakness, paresthesias, recurrent falls MSK: as per HPI All other systems reviewed and are unremarkable except noted above Physical Exam Exam Exam: Vital signs reviewed Physical Examination CONSTITUITIONAL Patient alert and cooperative. Well appearing and in no apparent painful distress MSK Hands * Right Hand: Able to make a fist. No swelling but TTP of scattered MCPs, PIPs, DIPs * Left Hand: Able to make a fist. No swelling but TTP of scattered MCPs, PIPs, DIPs Wrists * Right Wrist: Full ROM to flexion and extension. No swelling or TTP * Left Wrist: Full ROM to flexion and extension. No swelling or TTP Elbows * Right Elbow: Full ROM. No swelling or TTP. No TTP of the medial epicondyle. No TTP of the lateral epicondyle * Left Elbow: Full ROM. No swelling or TTP. No TTP of the medial epicondyle. No TTP of the lateral epicondyle Shoulders * Right shoulder: Full ROM. No swelling noted. No TTP of the AC joint. No TTP of the subacromial bursa. No TTP of the posterior shoulder * Left shoulder: Full ROM. No swelling noted. No TTP of the AC joint. No TTP of the subacromial bursa. No TTP of the posterior shoulder Knees * Right knee: Full ROM. No swelling noted. No TTP of the knee joint line. No TTP of pes anserine bursa * Left knee: Full ROM. No swelling noted. No TTP of the knee joint line. No TTP of pes anserine bursa. Ankles * Right ankle: Good ankle dorsiflexion and plantar flexion. No swelling. No TTP of the ankle joint * Left ankle: Good ankle dorsiflexion and plantar flexion. No swelling. No TTP of the ankle joint Feet * Right foot: Negative squeeze test * Left foot: Negative squeeze test Tender points? * No tenderness to palpation of the bilateral trapezius, supraspinatus, anterior costochondral junctions, bilateral suboccipital muscle insertions SKIN No rashes Vital Signs: Last Vital Signs Pulse 87 12/16/24 14:01 BP 115/74 12/16/24 14:01 Pulse Ox 98 12/16/24 14:01 Oxygen Delivery Method Room Air 12/16/24 14:01 BMI result Body Mass Index 32.5 Results Reviewed Results Reviewed: Laboratory Tests 04/10/24 11/16/24 15:56 14:16 WBC 5.9 RBC 4.42 L Hgb 13.3 L Hct 41.9 L Plt Count 221 ESR 26 H 31 H Sodium 137 Potassium 4.0 Chloride 103 Carbon Dioxide 27 BUN 13 Creatinine 0.82 AST 18 ALT 10 C-Reactive Protein 1.52 H 1.64 H Laboratory Tests 05/28/23 15:39 Rheumatoid Factor 21.9 H Cycl Citrul Peptide IgG <16 ANDREIA Screen POSITIVE A ANDREIA Titer 1:40 H Sm (Mustafa) Antibody <1.0 NEG SM/PHYSICAL THERAPY COORDINATOR IgG Antibody <1.0 NEG Double Strand DNA Ab <1 Assessment & Plan Assessment & Plan (1) Seropositive rheumatoid arthritis: Comment: +Rf (hx of Hep C_ -ve CCP dx 05/2023 MTX 05/2023 noncompliance DC 11/2023 Leflunomide 12/2023 - MTx added back 03/2024 - 06/2024 not effective Simponi 06/2024 - 11/2024. Not effective Code(s): M05.9 - Rheumatoid arthritis with rheumatoid factor, unspecified Category: Medical Plan: #Seropositive RA Patient is a 53-year-old male with seropositive rheumatoid arthritis. Currently not in remission. Not taking the leflunomide, ursula is not very compliant with oral meds so its best to try to manage with just infusions Plan - Stop Leflunomide 20mg daily - Stop Simponi - Start Actemra infusions: 6mg/kg every 4 weeks - RTC 4 months - Labs today: CBC, CMP, ESR, CRP, lipid panel (2) Long-term use of immunosuppressant medication: Code(s): Z79.60 - termite helper (current) use of unspecified immunomodulators and immunosuppressants Category: Medical Plan: #Long-term leflunomide Discussed with patient the benefits and risks of leflunomide for managing the rheumatic condition Benefits include: - Reduced pain, maintenance of remission and reduction of flares Risks include: - GI upset especially diarrhea, skin rash, cytopenias, hepatotoxicity, weight loss, neuropathy Monitoring: ?CBC, BMP, LFTs, hepatitis B and C serologies (3) Encounter for monitoring golimumab therapy: Code(s): Z51.81 - Encounter for therapeutic drug level monitoring; Z79.620 - FDC (current) use of immunosuppressive biologic Plan: #Long-term Use of TNF Inhibitors: Simponi Aria infusions Discussed with the patient the benefits and risks of TNF inhibitors for the management of the rheumatic condition Benefits include reduce pain, maintenance of remission and reduction of flares as well as ?progression of the disease Risks include injection sites/infusion reactions, serious infections (such as bacterial infections, opportunistic infections), malignancy, delaminating syndromes, autoimmune phenomena, CHF exacerbations, palmar plantar psoriasis and cytopenias Recommended rotating injection sites, and holding medication during and for up to 1 week after resolution of a febrile illness or open skin wound Plan I spent 40 minutes reviewing the record and labs, taking a history, examining the patient, discussing the treatment plan, writing infusion orders and getting consent and documenting in the medical record Coding Level of Care Code Est Pt Level 5 (88693) Complex EM visit Add On G2211 Diagnoses Seropositive rheumatoid arthritis M05.9 Long-term use of immunosuppressant medication Z79.60 Encounter for monitoring golimumab therapy Z51.81; Z79.620
[2024-12-16 14:01] VITALS: BP 115/74; PULSE 87; O2SAT 98; BMI 32.5
--- OUTSIDE RECORDS SUMMARY | 2024-12-16 16:23 | XMS_ITS | Clinical Summary ---
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 Zuleyma Main MD Primary [...] DEPARTMENT Provider, Generic External Data 10/20/2024 Telephone [facility] [address] [place] [phone] Zuleyma Main MD No Show 10/20/2024 Telephone [facility] [address] [place] [address] Zuleyma Main MD Chart Prep 10/13/2024 Patient Outreach [facility] [address] [place], [place] [phone] Zuleyma Main MD Pre-visit Planning (SDOH was [...] 04/07/2024 10:26 AM EST Plan of Treatment Upcoming Encounters Date Type Department Care Team (Late st Contact Info) Description 02/25/2025 2:45 PM EST Office Visit [facility] [address], [place] [phone] Zuleyma Main MD [address], [place] [phone] Health Maintenance Due Date Last Done Comments CT Colonography 1969 Colonoscopy 1969 Colorectal Cancer Screening 1969 FIT DNA/Cologuard 1969 FIT 1969 FOBT 1969 Sigmoidoscopy 1969 Disability Screening 1969 Hepatitis B Vaccines (1 of 3 - 19+ 3-dose series) 1988 Zoster Vaccines (1 of 2) 06/26/2019 COVID-19 Vaccine ( - season) 2024 Influenza Vaccine (#1) 2024 Alcohol/Substance Use Screening 04/07/2025 04/07/2024 Depression Screening 04/07/2025 04/07/2024, 02/02/20 23 SDOH Screening 04/07/2025 04/07/2024 Tobacco Screening 04/07/2025 04/07/2024 Lipid Panel 02/05/2028 02/04/2023, 11/10/2020 DTaP/Tdap/Td Vaccines (2 - Td or Tdap) 04/07/2034 04/07/2024, 12/15/2018 RSV Patients and Patients Aged 60 years or older (1 - 1-dose 75+ series) 2044 HIV Screening Completed 02/04/2023, 11/10/2020 Pneumococcal Vaccine: 50+ Years Completed 04/07/2024 Hepatitis C Screening Completed 11/16/2024 , 11/16/2024, 02/04/2023, Additional history exists HIB Vaccines Aged Out No longer eligi [...] Procedure Name Priority Date/Time Associated Diagnosis Comments T-SPOT(R).TB Routine 11/16/2024 2:16 PM EDT HEPATITIS B VIRUS DNA, QN, REAL TIME PCR Routine 11/16/2024 2:16 PM EDT HEPATITIS C VIRAL RNA, QUANTITATIVE, REAL-TIME PCR Routine 11/16/2024 2:16 PM EDT HEPATITIS PANEL, GENERAL Routine 11/16/2024 2:16 PM EDT SED RATE BY MODIFIED WESTERGREN Routine 11/16/2024 2:16 PM EDT C-REACTIVE PROTEIN Routine 11/16/2024 2: 16 PM EDT COMPREHENSIVE METABOLIC PANEL Routine 11/16/2024 2:16 PM EDT CBC WITH AUTO DIFFERENTIAL Routine 11/16/2024 2:16 PM EDT HIV 1/2 ANTIGEN/ANTIBODY, FOURTH GENERATION W/RFL Routine 02/04/2023 3:15 PM EST Health care maintenance LIPID PANEL, STANDARD Routine 02/04/2023 3:15 PM EST Health care maintenance from Last 3 Months or Most Recently Relevant to Health Maintenance Results * T-SPOT??.TB (11/16/2024 2:16 PM EDT) T Spot TB Negative Negative [facility] Comment:A negative test resu lt does not exclude the possibilityof exposure to or infection with Mycobacteriumtuberculosis (M. tuberculosis). Patients with recentexposure to TB infected individuals exhibiting anegative T-SPOT.TB result should be considered forretesting within 6 weeks or if other relevant clinicalsymptoms indicate. Results from T-SPOT.TB testing mustbe used in conjunction with each individual'sepidemiological history, current medical status,and results of other diagnostic evaluations.The T-SPOT.TB test is qualitative and results arereported as positive, borderline, or negative, giventhat the test controls perform as expected. In linewith the Centers for Disease Control and Prevention's2010 recommendation to report quantitative measurementsalongside the qualitative result, the laboratoryprovides spot counts for informational purposes only.The T-SPOT.TB test should not be interpreted as aquantitative test. TS PANEL A 0 [facility] TS PANEL B 2 [facility] Negative Control Passed [facility] Positive Control Passed [facility] Comment:For additional infor cristiano, please refer tohttp://education.[employer]/faq/HFW559(This link is being provided for informational/educational purposes only.)THIS TEST WAS PERFORMED AT:[employer] [id number] [place] [id number] LEWIS MD,PHD 11/16/2024 2:16 PM EDT 11/16/2024 2:16 PM EDT us Generic External Data Provider LAB BLOOD ORDERAB LES Final Result [facility] [address] [place] [phone] * (ABNORMAL) Hepatitis Panel, General (11/16/2024 2:16 PM EDT) [facility] Hepatitis A IgM Nonreactive Nonreactive [facility] Comment:IgM antibodies to RICE V not detected; does not exclude earlyacute or recovered HAV infection. ~Hepatitis B Surface Antibody REACTIVE Nonreactive [facility] Comment:REACTIVE: > 11.99 mI U/mL Hepatitis B Core Antibody Reactive Nonreactive [facility] Comment:Presumptive evidence of anti-HBc. Hepatitis C Antibody Reactive(A) Nonreactive [facility] Comment:Presumptive evidence of antibodies to HCV. Hepatitis B Surface Ag Negative Negative [facility] 11/16/2024 2:16 PM EDT 11/16/2024 2:16 PM EDT us Generic External Data Provider LAB BLOOD ORDERAB LES Final Result Performing Organization Address [facility] de Phone Number [facility] [address] [place] [phone] * Hepatitis C Viral RNA, Quantitative, Real-Time PCR (11/16/2024 2:16 PM EDT) [facility] Hepatitis C Viral Load <15 NOT DETECTED NOT DETECTED IU/mL [facility] HCV Log PCR <1.18 NOT DETECTED NOT DETECTED Log IU/mL [facility] Comment:For additional infor cristiano, please refer tohttp://education.[employer]/faq/OVM34t5(This link is being provided for informational/educational purposes only.)THIS TEST WAS PERFORMED AT:[employer] [place] [phone] LOPEZ MD 11/16/2024 2:16 PM EDT 11/16/2024 2:16 PM EDT us Generic External Data Provider LAB BLOOD ORDERAB LES Final Result Performing Organization Address [facility] Co de Phone Number [facility] [address] [place] [phone] * (ABNORMAL) CBC auto differential (11/16/2024 2:16 PM EDT) White Blood Count 5.9 4.8 - 10.8 X10*3/uL [facility] Red Blood Count 4.42(L) 4.60 - 5.80 X10*6/uL [facility] Hemoglobin 13.3(L) 14.0 - 18.0 g/dl [facility] Hematocrit 41.9(L) 42.0 - 52.0 % [facility] Mean Corpuscular Volume 94.8 80.0 - 98.0 fL [facility] Mean Corpuscular Hemoglobin 30.1 27.0 - 33.0 pg [facility] Mean Corpuscular HGB Conc 31.7 31.0 - 36.0 g/dl [facility] Red Cell Distribution Width 12.7 11.0 - 16.0 % [facility] Platelet Count 221 160 - 400 X10*3/uL [facility] Mean Platelet Volume 11.0 9.4 - 12.4 fL [facility] Neutrophils Percent Auto 59.1 45 - 73 % [facility] Imm Gran Pct Auto 0.3 0.0 - 0.4 % [facility] Lymphocytes Percent Auto 28.7 20 - 40 % [facility] Monocytes Percent Auto 8.4 2 - 11 % [facility] Eosinophils Percent Auto 2.5 0 - 4 % [facility] Basophils Percent Auto 1.0 0 - 2 % [facility] NRBC Pct Auto 0.0 0.0 - 0.2 /100WBC [facility] Neutrophils Absolute Auto 3.5 2.0 - 8.3 x10*3/uL [facility] Imm Gran Abs Auto 0.02 0.00 - 0.03 X10*3/uL [facility] Lymphocytes Absolute Auto 1.7 1.2 - 4.9 X10*3/uL [facility] Monocytes Absolute Auto 0.5 0.1 - 1.2 X10*3/uL [facility] Eosinophils Absolute Auto 0.2 0.0 - 0.4 X10*3/uL [facility] Basophils Absolute Auto 0.1 0.0 - 0.2 X10*3/uL [facility] NRBC Abs Auto 0.000 0.0 - 0.012 X10*3/uL [facility] 11/16/2024 2:16 PM EDT 11/16/2024 2:16 PM EDT Generic External Data Provider LAB BLOOD ORDERAB LES Final Result Performing Organization Address [facility]/ZIP Co de Phone Number [facility] [address] [place] [address] [phone] * Hepatitis B Virus DNA, Quantitative, Real-Time PCR (11/16/2024 2:16 PM EDT) Hepatitis B Viral DNA Qn - cp NOT DETECTED NOT DETECTED Log IU/mL [facility] Comment:This test was perfor med using Real-Time Polymerase ChainReaction.Reportable Range: 10 IU/mL to 1,000,000,000 IU/mL.(1.00 Log IU/mL to 9.00 Log IU/mL).THIS TEST WAS PERFORMED AT:[employer] [place] [phone] LOPEZ MD Hepatitis B Viral DNA Qn-IU/mL NOT DETECTED NOT DETECTED IU/mL [facility] 11/16/2024 2:16 PM EDT 11/16/2024 2:16 PM EDT Generic External Data Provider LAB BLOOD ORDERAB LES Final Result Performing Organization Address [facility] Co de Phone Number [facility] [address] [place] [phone] * (ABNORMAL) Sed Rate by Modified Mckayergren (11/16/2024 2:16 PM EDT) Erythrocyte Sedimentation Rate 31(H) 0 - 15 MM/HR [facility] Comment:Patients with polycy themia and many hemoglobin abnormalitiesmay have depressed sed rates whereas patients with anemiamay have elevated sed rates. 11/16/2024 2:16 PM EDT 11/16/2024 2:16 PM EDT Generic External Data Provider LAB BLOOD ORDERAB LES Final Result Performing Organization Address [facility] Co de Phone Number [facility] [address] [place] [phone] * (ABNORMAL) C-reactive Protein (11/16/2024 2:16 PM EDT) Pathologist [facility] C Reactive Protein 1.64(H) < or = 0.50 mg/dL [facility] 11/16/2024 2:16 PM EDT 11/16/2024 2:16 PM EDT Generic External Data Provider LAB BLOOD ORDERAB LES Final Result Performing Organization Address [facility] de Phone Number [facility] [address] [place] [phone] * (ABNORMAL) Comprehensive Metabolic Panel (11/16/2024 2:16 PM EDT) Pathologist [facility] Sodium 137 135 - 145 mmol/L [facility] Potassium 4.0 3.3 - 5.1 mmol/L [facility] Chloride 103 96 - 108 mmol/L [facility] Carbon Dioxide 27 22 - 29 mmol/L [facility] Anion Gap 11(L) 12 - 20 [facility] Urea Nitrogen (BUN) 13 9 - 16 mg/dL [facility] Creatinine, Serum 0.82 0.5 - 1.4 mg/dL [facility] Estimated Glomerular Filt Rate >60 [facility] Comment:Chronic Kidney Disea se: Estimated GFR < 60 mL/min/1.64f0Baucyt Kidney Disease: Estimated GFR < 15 mL/min/1.73m2 Glucose 115 60 - 115 mg/dL [facility] Calcium 8.7 8.4 - 10.2 mg/dL [facility] Bilirubin, Total 0.3 0.0 - 1.0 mg/dL [facility] Aspartate Amino Transferase 18 5 - 37 U/L [facility] Alanine Aminotransferase 10 0 - 40 U/L [facility] Total Protein 7.2 6.5 - 8.0 g/dL [facility] Albumin Level 4.0 3.5 - 5.0 g/dL [facility] Alkaline Phosphatase 115 39 - 117 U/L [facility] 11/16/2024 2:16 PM EDT 11/16/2024 2:16 PM EDT us Generic External Data Provider LAB BLOOD ORDERAB LES Final Result [facility] [address] [place] [phone] * HIV-1/2 Antigen and Antibodies, Fourth Generation, with Reflexes (02/04/2023 3:15 PM EST) HIV AB/AG Nonreactive Nonreactive [facility] Comment:HIV-1 p24 Ag and/or HIV-1/HIV-2 Ab not detected.A test result that is nonreactive does not exclude thepossibility of exposure to or infection with HIV-1 and/orHIV-2. Nonreactive results in this assay for individualswith prior exposure to HIV-1 and/or HIV-2 may be due toantigen and antibody levels that are below the limit ofdetection of this assay.The [employer] HIV Ag/Ab Combo assay result andsupplemental assay results should be interpreted inconjunction with the patient's clinical presentation,history and other laboratory results. If the results areinconsistent with clinical evidence, additional testing issuggested to confirm the result. Blood Venous blood specimen / Unknown 02/04/2023 3:15 PM EST 02/04/2023 4:09 PM EST us Dolly Barciona Amaral MD LAB BLOOD ORDERABLES Final Result [facility] [address] [place] [phone] * (ABNORMAL) Lipid Panel, Standard (02/04/2023 3:15 PM EST) Triglycerides 151(H) <150 mg/dL [facility] Comment:Desirable Triglyceri de: less than 150 mg/dLBorderline High Triglyceride 150-199 mg/dLHigh Triglyceride: 200-499 mg/dLVery High Triglyceride: greater than or equal to 5OO mg/dL Cholesterol 238(H) <200 mg/dL [facility] Comment:Desirable Cholestero l: less than 200 mg/dLBorderline High Cholesterol: 200-239 mg/dLHigh Cholesterol: greater than 239 mg/dL LDL Cholesterol Calculated 153(H) <100 mg/dL [facility] Comment:Desirable LDL: less than 100 mg/dLNear Optimal/Above Optimal LDL: 110- 129 mg/dLBorderline High LDL: 130-159 mg/dLHigh LDL: 160-189 mg/dLVery High LDL: greater than or equal to 190 mg/dL HDL Cholesterol 55 >40 mg/dL [facility] Comment:Desirable HDL: great er than 40 mg/dL Note: This HDL assay may give artificially low results in patients with liver disease. Blood Venous blood specimen / Unknown 02/04/2023 3:15 PM EST 02/04/2023 4:09 PM EST us Zuleyma Amaral MD LAB BLOOD ORDERABLES Final Result [facility] [address] [place] [phone] from Last 3 Months or Most Recently Relevant to Health Maintenance Insurance [facility] C3 Care Teams Aircraft Armorer Relationship Specialty Start Date End Date Zuleyma Main MD [address] [place] [phone] PCP - General Family Medicine 12/04/17
== END 2024-12-16 14:33 | disposition home or self-care (01) ==
LOC: HO.RHES 13:52
PROVIDERS: PCP Internal Medicine; Visit Provider Student in an Organized Health Care Education/Training Program
DX: M05.79 Rheumatoid arthritis with rheumatoid factor of multiple sites without organ or systems involvement (principal); Z79.60 Long term (current) use of unspecified immunomodulators and immunosuppressants; Z51.81 Encounter for therapeutic drug level monitoring; Z79.620 Long term (current) use of immunosuppressive biologic
CPT/HCPCS: 99215

== ENCOUNTER → 2024-12-16 13:52 | Outpatient (BNVA) | payer MEDICAID, SELFPAY | PROVIDERS: PCP Internal Medicine; Visit Provider Student in an Organized Health Care Education/Training Program | DX: M05.9 Rheumatoid arthritis with rheumatoid factor, unspecified (principal); Z51.81 Encounter for therapeutic drug level monitoring; Z79.620 Long term (current) use of immunosuppressive biologic; Z79.899 Other long term (current) drug therapy | CPT/HCPCS: 99212 ==